=== PATIENT | male | born 1955 | race Hispanic/Latino ===

== ENCOUNTER 2021-03-05 00:55 | Emergency (ER) | payer OTHER ==
[~2021-03-05] VITALS: Ht 172.7 cm; Wt 87.1 kg
[2021-03-05 00:56] VITALS: BP 132/72
[2021-03-05] MEDS ORDERED: KETOROLAC 60 MG VIAL (30MG/ML) ONE (02:00)
[2021-03-05] MEDS ORDERED: CYCLOBENZAPRINE HCL 10 MG TABLET ONE (02:00)
[2021-03-05] MEDS ORDERED: CYCLOBENZAPRINE HCL 10 MG TABLET PO ONE (02:00)
[2021-03-05] MEDS ORDERED: KETOROLAC 60 MG VIAL (30MG/ML) IM ONE (02:00)
[2021-03-05] MEDS ORDERED: CYCL10TA16 PO (02:20)
[2021-03-05] MEDS ORDERED: IBUP-2070 PO (02:20)
== END 2021-03-05 02:45 | disposition home or self-care (01) ==
LOC: EDH 00:55
DX: M62.838 Other muscle spasm (principal); E11.9 Type 2 diabetes mellitus without complications; Z79.1 Long term (current) use of non-steroidal anti-inflammatories (NSAID)
CPT/HCPCS: 96372; 99283; J1885

== ENCOUNTER 2021-07-07 14:06 | Emergency (ER) | payer OTHER ==
[~2021-07-07] VITALS: Ht 175.3 cm; Wt 88.5 kg
[~2021-07-07 14:06] MED LIST: CYCL10TA16 PO; IBUP-2070 PO
[2021-07-07 14:25] LABS: BASOPHILS % (AUTO) 0.6 % (0.0-5.0); EOSINOPHILS % (AUTO) 1.2 % (0.0-8.0); LYMPHOCYTES % (AUTO) 35.5 % (21.0-51.0); MEAN CORPUSCULAR HEMOGLOBIN 31.7 pg (27.0-33.0); MEAN CORPUSCULAR HGB CONC 33.2 g/dL (32.0-36.0); MEAN CORPUSCULAR VOLUME 95.6 fL (79-99); MONOCYTES % (AUTO) 7.7 % (3.0-13.0); NEUTROPHILS % (AUTO) 54.7 % (40.0-77.0); PLATELET COUNT (AUTO) 142 K/uL (130-400); RED BLOOD CELL COUNT(AUTO) 4.29 MIL/uL (4.50-6.20); RED CELL DISTRIBUTION WIDTH 13.3 % (11.0-15.5); WHITE BLOOD COUNT (AUTO) 6.6 K/uL (4.8-10.8)
[2021-07-07 14:35] LABS: INR 0.99 (0.85-1.15); POTASSIUM 3.9 mmol/L (3.5-5.1); PROTHROMBIN TIME 10.8 SEC (9.6-11.6)
[2021-07-07 14:37] LABS: PARTIAL THROMBOPLASTIN TIME 27.6 SEC (26.3-35.5)
[2021-07-07 14:44] LABS: ALBUMIN 3.8 g/dL (3.5-5.0); BILIRUBIN,TOTAL 0.5 mg/dL (0.2-1.0); TOTAL PROTEIN, SERUM 7.1 g/dL (6.0-8.3)
[2021-07-07 14:45] LABS: B-TYPE NATRIURETIC PEPTIDE 159 pg/mL (0-100)
[2021-07-07] MEDS ORDERED: ASPIRIN 325MG TAB ONE (14:56)
[2021-07-07] MEDS ORDERED: ASPIRIN 325MG EC TAB PO ONE (15:00)
[2021-07-07] MEDS ORDERED: IOHEXOL-350 75 ML VIAL IV ONE (15:17)
[2021-07-07 15:27] LABS: APPEARANCE,URINE Clear (CLEAR); BILIRUBIN,URINE Negative (NEGATIVE); COLOR,URINE Yellow (YELLOW); GLUCOSE, URINE (UA) >=1000 mg/dL (NEGATIVE); KETONES,URINE Negative (NEGATIVE); LEUKOCYTE ESTERASE ,URINE Negative (NEGATIVE); NITRATE,URINE Negative (NEGATIVE); OCCULT BLOOD,URINE Negative (NEGATIVE); PROTEIN,URINE Negative (NEGATIVE)
[2021-07-07] MEDS ORDERED: 0.9%NACL 1000ML 1,000 ML IV ONE (15:30)
[2021-07-07 15:35] LABS: AMPHET/METH SCREEN,URINE NEGATIVE (NEGATIVE); BARBITURATE SCREEN, URINE NEGATIVE (NEGATIVE); BENZODIAZEPINES SCREEN,URINE NEGATIVE (NEGATIVE); CANNABINOID SCREEN,URINE NEGATIVE (NEGATIVE); COCAINE SCREEN,URINE NEGATIVE (NEGATIVE); OPIATE SCREEN,URINE NEGATIVE (NEGATIVE); PHENCYCLIDINE SCREEN,URINE NEGATIVE (NEGATIVE)
[2021-07-07 15:40] LABS: BACTERIA,URINE Rare /HPF (None Seen); MUCUS,URINE Few LPF (None Seen); RBC,URINE 0-1 /HPF (0-1); SQUAMOUS EPITHELIAL CELL,UR Few /HPF (0-2); WBC,URINE 0-1 /HPF (0-1)
[2021-07-07 15:58] VITALS: BP 132/62
== END 2021-07-07 17:11 | disposition home or self-care (01) ==
LOC: EDH 14:06
DX: R07.89 Other chest pain (principal); E11.9 Type 2 diabetes mellitus without complications; Z88.8 Allergy status to other drugs, medicaments and biological substances; Z98.890 Other specified postprocedural states
CPT/HCPCS: 36415; 71046; 71275; 80053; 80061; 80305; 81001; 82550; 83735; 83874; 83880; 84484 ×2; 85025; 85378; 85610; 85730; 93005; 96360; 99285; J7030; Q9967

== ENCOUNTER 2022-04-22 05:58 | Observation (INO) | payer OTHER ==
[2022-04-16 10:23] LABS: BASOPHILS % (AUTO) 0.5 % (0.0-5.0); EOSINOPHILS % (AUTO) 0.5 % (0.0-8.0); HEMATOCRIT 37.9 % (42-54); LYMPHOCYTES % (AUTO) 27.7 % (21.0-51.0); MEAN CORPUSCULAR HEMOGLOBIN 32.1 pg (27.0-33.0); MEAN CORPUSCULAR VOLUME 94.3 fL (79-99); MONOCYTES % (AUTO) 5.6 % (3.0-13.0); NEUTROPHILS % (AUTO) 65.4 % (40.0-77.0); PLATELET COUNT (AUTO) 143 K/uL (130-400); RED BLOOD CELL COUNT(AUTO) 4.02 MIL/uL (4.50-6.20); RED CELL DISTRIBUTION WIDTH 12.7 % (11.0-15.5)
[2022-04-16 10:32] LABS: CREATININE 0.9 mg/dL (0.5-1.5); INR 1.01 (0.85-1.15); POTASSIUM 4.3 mmol/L (3.5-5.1)
[2022-04-16 10:33] LABS: PARTIAL THROMBOPLASTIN TIME 29.9 SEC (26.3-35.5)
[2022-04-17 11:08] VITALS: BP 109/58
[2022-04-22] VITALS (25 sets, daily range): BP systolic 108–152; BP diastolic 55–73
[~2022-04-22] VITALS: Ht 172.7 cm; Wt 85.4 kg
[~2022-04-22 05:58] MED LIST changes: +ATOR20TA65 PO; -CYCL10TA16 PO; +DOCU-116 PO; -IBUP-2070 PO; +LACT10SO5 PO; +LACTATED RINGERS 1000ML 1,000 ML IV SCH; +RAMI2.5C55 PO
[2022-04-22] MEDS ORDERED: TRANEXAMIC ACID 1000MG/10ML IV SCH (06:00)
[2022-04-22] MEDS ORDERED: 0.9%NACL 1000ML 1,000 ML IV ONE (08:00)
[2022-04-22] MEDS: CEFAZOLIN SODIUM 1 GM VIAL IVPB SCH ×2 (08:25→12:32)
[2022-04-22] MEDS ORDERED: TRANEXAMIC ACID 1000MG/10ML ONE ×2 (08:46→11:55)
[2022-04-22] MEDS ORDERED: ROPIVACAINE 0.5% 5MG/ML 30ML IJ ONE (10:43)
[2022-04-22] MEDS ORDERED: BUPIVACAINE/PF 0.25% 10ML VIAL IJ ONE (10:48)
[2022-04-22] MEDS ORDERED: LIDOCAINE PF 100MG/5ML (2%) SYRINGE 5ML ONE (11:35)
[2022-04-22] MEDS ORDERED: PROPOFOL 10 MG/ML 20ML VIAL IV ONE (11:36)
[2022-04-22] MEDS ORDERED: FENTANYL CITRATE PF 50 MCG/1 ML 2ML VIAL ONE (11:37)
[2022-04-22] MEDS ORDERED: ROCURONIUM 10MG/1ML SYR 10 MG/ML ML ONE (11:37)
[2022-04-22] MEDS ORDERED: MIDAZOLAM HCL 1 MG/ML 2ML VIAL ONE (11:37)
[2022-04-22] MEDS ORDERED: KETOROLAC 30MG VIAL (30MG/ML) ONE (11:39)
[2022-04-22] MEDS ORDERED: ONDANSETRON 4MG INJ ONE (11:39)
[2022-04-22] MEDS ORDERED: PHENYLEPHRINE HCL 10 MG/ML 1ML VIAL IV ONE (13:13)
[2022-04-22] MEDS ORDERED: HYDROCODONE/ACETAMINOPHEN 10/325 MG TAB PO PRN (14:30)
[2022-04-22] MEDS ORDERED: POTASSIUM CHLORIDE 20MEQ/100ML 100 ML IV PRN (14:30)
[2022-04-22] MEDS ORDERED: KCL 20 MEQ ERTAB PO PRN (14:30)
[2022-04-22] MEDS: 0.9%NACL 1000ML 1,000 ML IV SCH (14:30)
[2022-04-22] MEDS ORDERED: HYDROCODONE/ACETAMINOPHEN 5/325 MG TAB PO PRN (14:30)
[2022-04-22] MEDS ORDERED: ONDANSETRON 4MG INJ IVP PRN (14:30)
[2022-04-22] MEDS ORDERED: LIDOCAINE HCL-MPF 1% 2ML VIAL IV PRN (14:30)
[2022-04-22] MEDS ORDERED: POTASSIUM CHLORIDE 10% ELIXIR 20 MEQ/15 ML UDCUP PO PRN (14:30)
[2022-04-22] MEDS ORDERED: MORPHINE 4 MG SYG IVP PRN (14:30)
[2022-04-22] MEDS: ACETAMINOPHEN 1,000 MG/100 ML VIAL IV SCH ×2 (14:47→20:30)
[2022-04-22] MEDS ORDERED: HYDROMORPHONE 1 MG INJ ONE (14:50)
[2022-04-22] MEDS ORDERED: CEFAZOLIN SODIUM 2 GM VIAL ONE (17:53)
[2022-04-22] MEDS: IBUPROFEN 800MG + NS 250ML IV SCH (17:55)
[2022-04-22] MEDS: TRAMADOL HCL 50 MG TABLET PO SCH (17:56)
[2022-04-22] MEDS: CEFAZOLIN SODIUM 1 GM VIAL IVP SCH (17:58)
[2022-04-22] MEDS: FAMOTIDINE 20MG TAB PO SCH (19:39)
[2022-04-22] MEDS: LACTULOSE 20 GM/30 ML UDCUP PO SCH (19:39)
[2022-04-22] MEDS: ASPIRIN 81 MG EC TAB PO SCH (19:39)
[2022-04-22] MEDS ORDERED: NON-FORMULARY MEDICATION 1 EACH (Lactulose 10 GM) PO SCH (21:00)
[2022-04-22] MEDS ORDERED: NON-FORMULARY MEDICATION 1 EACH (Ramipril 2.5 MG) PO SCH (21:00)
[2022-04-23] MEDS: 0.9%NACL 1000ML 1,000 ML IV SCH ×2 (00:14→10:30)
[2022-04-23] MEDS: IBUPROFEN 800MG + NS 250ML IV SCH ×2 (00:14→09:30)
[2022-04-23] MEDS: CEFAZOLIN SODIUM 1 GM VIAL IVP SCH (02:50)
[2022-04-23 03:51] VITALS: BP 112/57
[2022-04-23 04:38] LABS: MEAN CORPUSCULAR HGB CONC 32.9 g/dL (32.0-36.0); MEAN CORPUSCULAR VOLUME 97.1 fL (79-99); RED BLOOD CELL COUNT(AUTO) 3.5 MIL/uL (4.50-6.20); RED CELL DISTRIBUTION WIDTH 12.7 % (11.0-15.5)
[2022-04-23 04:45] LABS: CREATININE 0.9 mg/dL (0.5-1.5); POTASSIUM 3.9 mmol/L (3.5-5.1)
[2022-04-23] MEDS: TRAMADOL HCL 50 MG TABLET PO SCH ×5 (06:21→23:54)
[2022-04-23 08:00] VITALS: BP 119/51
[2022-04-23] MEDS: RAMIPRIL 2.5 MG PO SCH (09:00)
[2022-04-23] MEDS: ASPIRIN 81 MG EC TAB PO SCH ×2 (09:24→20:54)
[2022-04-23] MEDS: FAMOTIDINE 20MG TAB PO SCH ×2 (09:24→20:54)
[2022-04-23] MEDS: POLYETHYLENE GLYCOL 3350 17 GM POWD.PACK PO SCH (09:25)
[2022-04-23] MEDS: LACTULOSE 20 GM/30 ML UDCUP PO SCH ×2 (09:25→20:54)
[2022-04-23 12:00] VITALS: BP 126/54
[2022-04-23 16:00] VITALS: BP 125/59
[2022-04-23 20:00] VITALS: BP 112/57
[2022-04-23] MEDS ORDERED: ACETAMINOPHEN 325 MG TAB PO PRN (20:30)
[2022-04-24 00:17] VITALS: BP 115/51
[2022-04-24 04:04] VITALS: BP 103/52
[2022-04-24] MEDS: TRAMADOL HCL 50 MG TABLET PO SCH ×2 (05:47→12:00)
[2022-04-24] MEDS: POLYETHYLENE GLYCOL 3350 17 GM POWD.PACK PO SCH (09:00)
[2022-04-24] MEDS: RAMIPRIL 2.5 MG PO SCH (09:00)
[2022-04-24] MEDS: FAMOTIDINE 20MG TAB PO SCH (09:44)
[2022-04-24] MEDS: ASPIRIN 81 MG EC TAB PO SCH (09:44)
[2022-04-24] MEDS: LACTULOSE 20 GM/30 ML UDCUP PO SCH (09:45)
[2022-04-25] MEDS ORDERED: BISACODYL 10 MG SUPP.RECT RC PRN (14:30)
== END 2022-04-24 17:45 | disposition home or self-care (01) ==
LOC: DAH 05:58 → DAHIP 05:59 → DAH 05:59 → 4DH 17:45
PROVIDERS: ADMIT Orthopaedic Surgery; ATTEND Orthopaedic Surgery
DX: M17.11 Unilateral primary osteoarthritis, right knee (principal); Z20.822 Contact with and (suspected) exposure to COVID-19; I10 Essential (primary) hypertension; E78.5 Hyperlipidemia, unspecified; Z79.899 Other long term (current) drug therapy
CPT/HCPCS: 80048 ×2; 85025; 85610; 85730; 87426; 36415 ×2; 27447; 0055T; 96365; 96366 ×2; 96375 ×2; 82948; 97039 ×4; 85027; 97161; 97116 ×4; 97530 ×4; A6260; G0378 ×49; A4663; J7030 ×2; A4649 ×4; J3010; J0690 ×3; J1170; J3490 ×4; J2001; J2250; J2704; J2405; J1885; J2370; J1741; G0168; C1776 ×4; A6255; A6254; A5120; A4215; A4223; A4222; A4221; J2795

== ENCOUNTER 2023-02-18 19:56 | Emergency (ER) | payer OTHER ==
[~2023-02-18] VITALS: Ht 172.7 cm; Wt 87.5 kg
[~2023-02-18 19:56] MED LIST changes: -LACTATED RINGERS 1000ML 1,000 ML IV SCH
[2023-02-18 20:31] VITALS: BP 127/74; PULSE 62; RESP 20
[2023-02-18] MEDS ORDERED: MORPHINE 4 MG SYG IM ONE (22:30)
[2023-02-19] MEDS ORDERED: ACET-2079 PO (00:05)
== END 2023-02-19 00:12 | disposition home or self-care (01) ==
LOC: EDH 19:56
DX: S49.91XA Unspecified injury of right shoulder and upper arm, initial encounter (principal); M25.511 Pain in right shoulder; E11.9 Type 2 diabetes mellitus without complications; E78.00 Pure hypercholesterolemia, unspecified; W01.0XXA Fall on same level from slipping, tripping and stumbling without subsequent striking against object, initial encounter; Y93.89 Activity, other specified; Y92.89 Other specified places as the place of occurrence of the external cause; Y99.8 Other external cause status
CPT/HCPCS: 99284; 73060; 73030; 96372; J2270

== ENCOUNTER 2025-02-03 07:35 | Observation (INO) | payer OTHER ==
[~2025-02-03] VITALS: Ht 172.7 cm; Wt 88.3 kg
[~2025-02-03 07:35] MED LIST changes: +ACET-2079 PO; +LACT-441 PO; -LACT10SO5 PO; -RAMI2.5C55 PO; +RAMI2.5C57 PO
--- NOTE | 2025-02-03 07:48 | NUR ---
PT TRANSPORTED VIA WHEELCHAIR DUE TO BLE PAIN AND WEAKNESS. PT STATES HE WAS SEEN AT PCP ON THURSDAY FOR SCIATICA TO BILATERAL HIPS AND PRESCRIBED MEDICATION FOR PAIN. PT CURRENTLY ON MEDICATION AND STATES THAT ITS POSSIBLE HE IS HAVING A REACTION TO MEDS. HE STATES SINCE HE BEGAN MEDS HE HAS BEEN FEELING DIZZY, UNABLE TO STAND WITHOUT ASSISTANCE, BLE WEAKNESS, BURNING WITH URINATION,AND FEVER.
[2025-02-03 08:03] LABS: APPEARANCE,URINE CLOUDY (CLEAR); GLUCOSE, URINE (UA) NEGATIVE (NEGATIVE); LEUKOCYTE ESTERASE ,URINE 500 Leu/uL (NEGATIVE); NITRATE,URINE 1+ (NEGATIVE); OCCULT BLOOD,URINE +- (TRACE) (NEGATIVE)
--- NOTE | 2025-02-03 08:05 | EKG ---
[facility] Test Date: 2025-02-03 Test Time: 08:00:35 Pat Name: NADEEN BRAMBILA Department: ED Room: 332 Gender: M English Language Learner Tutor: [id number] : 1955 Requested By: ALEX BROOKS Order Number: [id number] Reading MD: Efra Humphreys Measurements Intervals [place] Rate: 71 P: 33 UT: 141 QRS: 0 QRSD: 93 T: 43 QT: 407 QTc: 443 Interpretive Statements Sinus rhythm Compared to ECG 07/07/2021 14:12:51 Sinus bradycardia no longer present Electronically Signed On 02-03-2025 18:30:29 CDT by Efra Humphreys Please click the below link to view image of tracing.
[2025-02-03 08:06] LABS: ADD UA MICROSCOPIC YES
[2025-02-03 08:08] LABS: SQUAMOUS EPITHELIAL CELL,UR RARE /HPF (0-2); WBC CLUMP FEW /HPF (0-1)
[2025-02-03 08:30] LABS: IMMATURE GRANULOCYTE ABSOLUTE 0.06 K/uL (0-1); NUCLEATED RED BLOOD CELLS 0.0 % (0.0-0.19); PLATELET COUNT (AUTO) 136 K/uL (130-400); RED BLOOD CELL COUNT(AUTO) 3.31 MIL/uL (4.50-6.20); RED CELL DISTRIBUTION WIDTH 13.4 % (11.0-15.5); WHITE BLOOD COUNT (AUTO) 13.3 K/uL (4.8-10.8)
[2025-02-03] MEDS: 0.9%NACL 1000ML 1,000 ML IV ONE (08:40)
[2025-02-03 08:56] LABS: ASPARTATE AMINOTRANSFERASE 19.0 U/L (10-37); CREATINE KINASE, TOTAL 63.0 U/L (21-232); CREATININE 1.4 mg/dL (0.5-1.3); GLOMERULAR FILTR. RATE CALC 54.0 mL/min (>90); GLUCOSE,RANDOM 158.0 mg/dL (70-105); SODIUM SERUM 140.0 mmol/L (136-145); TOTAL PROTEIN, SERUM 6.9 g/dL (6.0-8.3); UREA NITROGEN, BLOOD 22.0 mg/dL (7-18)
--- NOTE | 2025-02-03 10:11 | HMCIMG ---
EXAM: CR Chest, single view. CLINICAL HISTORY: Fever. COMPARISON: Prior chest radiograph dated FINDINGS: The lungs show no infiltrate or other acute findings. No pleural effusion or pneumothorax. The cardiomediastinal silhouette is within normal limits. No acute osseous abnormality. IMPRESSION: No acute cardiopulmonary pathology is evident. Compared to the prior study, there is no significant interval change. /Charlo
--- NOTE | 2025-02-03 10:19 | ERN ---
ED Note History of Present Illness Stated Complaint: RT&LT HIP PAIN,FEVER,UNABLE TO STAND Chief Complaint: Multiple Complaints Time Seen by MD: 07:42 Dictation: 69-year-old male presenting to the emergency department with generalized weakness hip pain subjective fevers and problem to low back and hip over the past few days worsened this morning. Allergies: Coded Allergies: No Known Allergies (Unverified Allergy, Unknown, 07/07/21) Home Meds Active Scripts Acetaminophen with Codeine (Acetaminophen-Cod #3 Tablet) 300 Mg-30 Mg Tablet, 1- 2 TAB PO Q4H PRN for PAIN, #10 TAB 0 Refills Prov:ELYSSA BUTLER MD 02/19/23 Reported Medications Docusate Sodium (Colace) 100 Mg Capsule, 100 MG PO HS, CAP 04/17/22 Lactulose (Lactulose) 10 Gm/15 Ml Solution, 10 GM PO BID, ML 04/17/22 Ramipril (Ramipril) 2.5 Mg Capsule, 2.5 MG PO HS, CAP 04/17/22 Atorvastatin Calcium (Atorvastatin Calcium) 20 Mg Tablet, 20 MG PO HS, TAB 04/17/22 Past Medical History Past Medical History: Diabetes-Type II, High Cholesterol, Other Additional Past Medical Hx: CHRONIC CONSTIPATION Surgical History: Other Surgical History Other: TOTAL RT KNEE REPLACEMENT Social History: Lives with family Review of System Dictation Constitutional: Per HPI Eyes: Negative for injury, pain,redness, and discharge ENT: Negative for injury,pain or swelling Cardiovascular: Negative for chest pain, palpitations, and edema Respiratory: Negative for shortness of breath, cough, and wheezing, Abdomen/GI: Negative for abdominal pain, nausea, vomiting, diarrhea, and constipation Back: Per HPI : Per HPI MS/Extremity: Negative for injury and deformity Skin: Negative for rash, and discoloration Neuro: Negative for headache, weakness, numbness, tingling, and seizure Psych: Negative for suicide ideation, homicidal ideation, and hallucinations Initial Vital Sign VS Vital Signs Date Time Temp Pulse Resp B/P (MAP) Pulse Ox O2 Delivery O2 Flow Rate FiO2 02/03/25 07:38 100.4 75 20 112/50 98 Room Air 0 02/03/25 07:43 21 Physical Exam Dictation General: awake, alert, febrile Head/Face: Normocephalic, atraumatic Eyes: PERRL, EOMI, vision at baseline ENT: oral cavity clear, TMs clear, no signs of infection Neck: Trachea midline, supple, no nuchal rigidity Cardiovascular: RRR, normal S1/S2, No MRGs, no JVD Respiratory: CTAB, no respiratory distress, No rales or wheezes Abdomen: Soft, non-tender, non-distended, normal bowel sounds, no guarding or rebound. Skin: Warm, dry, normal turgor, no rash MS/Extremity: Pulses equal, no cyanosis, neurovascular intact, FROM Neuro: COAx4, GCS 15, strength 5/5, CN 2-12 intact, normal cerebellar exam, normal gait, Psych: Normal behavior, mood, and affect normal Results (Laboratory/Radiology) Laboratory/Radiology Laboratory Tests Test 02/03/25 07:45 02/03/25 08:17 Urine Color DARK-YELLOW (YELLOW) Urine Appearance CLOUDY (CLEAR) H Urine pH 6.0 (5.0-8.0) Urine Specific [place] 1.021 (1.001-1.031) Urine Protein 10 mg/dL (NEGATIVE) H Urine Glucose (UA) NEGATIVE mg/dL (NEGATIVE) Urine Ketones NEGATIVE mg/dL (NEGATIVE) Urine Occult Blood +- (TRACE) (NEGATIVE) H Urine Nitrate 1+ (NEGATIVE) H Urine Bilirubin 1 mg/dL (NEGATIVE) H Urine Urobilinogen 4.0 mg/dL (0.2-1.0) H Urine Leukocyte Esterase 500 June/uL (NEGATIVE) H Urine RBC 6-10 /HPF (0-1) H Urine WBC TNTC /HPF (0-1) H Urine WBC Clumps (Auto) FEW /HPF (0-1) Urine Squamous Epithelial Cells RARE /HPF (0-2) Urine Bacteria Rare /HPF (None Seen) White Blood Count 13.3 K/uL (4.8-10.8) H Red Blood Count 3.31 MIL/uL (4.50-6.20) L Hemoglobin 10.6 g/dL (14.0-18.0) L Hematocrit 31.6 % (42-54) L Mean Corpuscular Volume 95.5 fL (79-99) Mean Corpuscular Hemoglobin 32.0 pg (27.0-33.0) Mean Corpuscular Hemoglobin Concent 33.5 g/dL (32.0-36.0) Red Cell Distribution Width 13.4 % (11.0-15.5) Platelet Count 136 K/uL (130-400) Mean Platelet Volume 10.8 fL (7.5-10.5) H Immature Granulocyte % (Auto) 0.5 % (0-1) Neutrophils (%) (Auto) 90.7 % (40.0-77.0) H Lymphocytes (%) (Auto) 3.8 % (21.0-51.0) L Monocytes (%) (Auto) 4.7 % (3.0-13.0) Eosinophils (%) (Auto) 0.1 % (0.0-8.0) Basophils (%) (Auto) 0.2 % (0.0-5.0) Neutrophils # (Auto) 12.1 K/uL (1.8-7.7) H Lymphocytes # (Auto) 0.5 K/uL (1.0-4.8) L Monocytes # (Auto) 0.6 K/uL (0.1-1.0) Eosinophils # (Auto) 0.01 K/uL (0.00-0.70) Basophils # (Auto) 0.03 K/uL (0.00-0.20) Absolute Immature Granulocyte (auto 0.06 K/uL (0-1) Nucleated Red Blood Cells 0.0 % (0.0-0.19) White Cell Morphology Comment See comments Sodium Level 140 mmol/L (136-145) Potassium Level 3.8 mmol/L (3.5-5.1) Chloride Level 106 mmol/L (101-111) Carbon Dioxide Level 26 mmol/L (21-32) Blood Urea Nitrogen 22 mg/dL (7-18) H Creatinine 1.4 mg/dL (0.5-1.3) H Glomerular Filtration Rate Calc 54 mL/min (>90) Random Glucose 158 mg/dL (70-105) H Lactic Acid Level 1.4 mmol/L (0.8-2.5) Total Calcium 8.3 mg/dL (8.5-10.1) L Total Bilirubin 1.4 mg/dL (0.2-1.0) H Direct Bilirubin 0.3 mg/dL (0.0-0.3) Aspartate Amino Transf (AST/SGOT) 19 U/L (10-37) Alanine Aminotransferase (ALT/SGPT) 19 U/L (12-78) Alkaline Phosphatase 72 U/L (50-136) Total Creatine Kinase 63 U/L (21-232) # Troponin I High Sensitivity 13 ng/L (4-75) Total Protein 6.9 g/dL (6.0-8.3) Albumin 3.7 g/dL (3.5-5.0) Labs Reviewed?: Yes EKG Comment: Heart rate 71 normal sinus rhythm normal intervals no STEMI ED Course ED Course Orders Procedure Category Date Status Time Urinalysis Profile LAB 02/03/25 Complete 07:43 12 Lead Ekg Tracing- EKG 02/03/25 Complete Technical 07:52 Basic Metabolic Panel LAB 02/03/25 Complete 07:52 Blood Cult LALO 02/03/25 In Process 07:52 Cbc With Differential LAB 02/03/25 Complete 07:52 Hepatic Function Panel LAB 02/03/25 Complete 07:52 Creatine Kinase, Total LAB 02/03/25 Complete 07:52 Lactic Acid LAB 02/03/25 Complete 07:52 Troponin I High LAB 02/03/25 Complete Sensitivity 07:52 Chest 1vw RAD 02/03/25 Resulted 07:52 Ceftriaxone 2gm Vial PHA 02/03/25 Complete (Rocephin 2gm Inj) 08:00 0.9%Nacl 1000ml (Ns PHA 02/03/25 Complete 1000ml) 08:00 Acetaminophen 500mg PHA 02/03/25 Complete Tab (Tylenol 500mg T 08:00 Culture Urine LALO 02/03/25 Logged 08:07 Current Medications Medications (Trade) Dose Ordered Sig/Topher Route PRN Reason Start Time Stop Time Status Last Admin Dose Admin Acetaminophen (TYLenol 500MG TAB) 1,000 mg ONCE ONCE PO 02/03/25 08:00 02/03/25 08:01 DC 02/03/25 08:40 Ceftriaxone Sodium (Rocephin 2gm Inj) 2 gm ONCE ONCE IVPB 02/03/25 08:00 02/03/25 08:01 DC 02/03/25 08:40 Sodium Chloride 1,000 ml @ 0 mls/hr ONCE ONCE IV 02/03/25 08:00 02/03/25 08:01 DC 02/03/25 08:40 Vital Signs Date Time Temp Pulse Resp B/P (MAP) Pulse Ox O2 Delivery O2 Flow Rate FiO2 02/03/25 08:43 100.4 77 20 110/65 97 Room Air* 0 21 02/03/25 08:40 100.4 02/03/25 07:43 100.4 75 20 112/50 97 Room Air* 0 21 02/03/25 07:38 100.4 75 20 112/50 98 Room Air 0 Medical Decision Making MDM MDM: Differential diagnosis: Rationale: Tests considered and ordered secondary to shared decision making include: labs, ECG and radiology Previous outside records reviewed: Old ER visits. Risk of complication and/or morbidity or mortality of patient management: None Medications-Per medication reconciliation Need for hospitalization: Patient does meet criteria for hospitalization. Need for emergency major/minor surgery: No There are no social concerns with this patient. Prescription drug management Prescriptions will include symptomatic care Patient's prior external medical records from other ER visits were reviewed by me as indicated. Prior testing and results from previous visits were reviewed. Prior tests were taken into account with medical decision making and resource utilization, independent historian/historians were used to obtain complete medical history. I independently interpreted the test that were performed, results were reviewed by me and considered findings on radiology if ordered. Medical management and examination interpretation discussions were had by me with other qualified healthcare professionals as indicated for the patient's care. 69-year-old male with UTI sepsis IV fluids and antibiotics given hemodynamically stable admitting to Medicine for further care and evaluation DX & DISP Disposition: Inpatient Departure Impression: Primary Impression: UTI (urinary tract infection) Additional Impression: Sepsis Condition: Stable Referrals: ABY ADAMES MD (PCP) ALEX BROOKS MD Feb 03, 2025 10:19
[2025-02-03 10:44] LABS: INR 1.04 (0.85-1.15)
[2025-02-03 10:50] LABS: LACTATE DEHYDROGENASE 159.0 U/L (81-234)
[2025-02-03] MEDS ORDERED: ZOSYN 3.375GM +NS 50ML IVPB SCH (11:00)
--- NOTE | 2025-02-03 11:26 | HP ---
[facility] HISTORY AND PHYSICAL Date of Service: Feb 03, 2025 Time of Service: 11:26 HISTORY OF PRESENT ILLNESS: Date of service: 02/03/2025, patient was seen in ER room nine This is a 69-year-old male with underlying history of recently diagnosed BPH, hypertension, hyperlipidemia, history of sciatica who presented to the ER for further evaluation of fever with a, poor oral intake, and lower extremity we akness. Patient states that he has been having progressive pain involving the back and bilateral lower extremities involving the thigh, and he recently saw his primary care provider about five days ago. Was diagnosed with flare-up of sciatica and has been taking methocarbamol since Thursday to assist with symptoms. Patient states that close to midnight tonight, he felt more dizziness, progressive weakness of the bilateral lower extremities where he could not get up from the bed. Denies any falls. Denies any chest pain, cough or congestion. He has been having dysuria, and increased urinary frequency. Patient reports having history of constipation and he takes p.r.n. MiraLax for management of constipation./bowel movement was yesterday. Patient denies any previous history of stroke, denies any cardiac or pulmonary comorbidities. States that he is feeling much better since coming to the ER and the weakness has mostly resolved lower extremity. On presentation to the hospital, patient was noted to be febrile with T-max of 100.4, heart rate of 75, blood pressure of 112/50. Labs [place] [address], hemoglobin of 10.6, platelet count of 802780. BMP remarkable for sodium of 140, potassium 3.8, BUN of 22, creatinine 1.4, blood glucose of 158, procalcitonin of 1.74. Urinalysis showed cloudy urine with leukocyte esterase positive, significant pyuria, rare bacteria. Patient will be admitted for further management of sepsis secondary to complicated urinary tract infection. Patient will receive sepsis bolus of fluids, IV antibiotics. Patient was also seen by Dr. Rojo with Tele neurology, patient with no significant focal deficits so no need for CT head without contrast per Dr. Rojo. Dr. Rojo was recommending a MRI of the lumbar spine for further evaluation if weakness does not improve during admission given his previous history of sciatica for one month. REVIEW OF SYSTEMS CONSTITUTIONAL: Generalized fatigue, malaise, poor oral intake NEUROLOGICAL: Reports having history of sciatica and he has been having lower back pain with paresthesias ENT: No hearing loss, otalgia, otorrhea, rhinitis, rhinorrhea, hoarseness, or sore throat. CARDIOVASCULAR: Denies any exertional angina, dyspnea on exertion, orthopnea, paroxysmal nocturnal dyspnea, palpitations, life-threatening arrhythmias, claudication. PULMONARY: Denies any shortness of breath, cough, phlegm/sputum, hemoptysis, pleuritic chest pain. SLEEP: Denies morning headaches, daytime somnolence or napping. Denies difficulty falling asleep, staying asleep, waking from sleep. Denies knowledge of snoring. GASTROINTESTINAL: Denies any type of dysphagia to either liquids or solids. Denies nausea, vomiting, pyrosis, early satiety, abdominal pain, diarrhea, constipation, or changes in stool consistency or caliber. Denies coffee-ground emesis, hematemesis, hematochezia, or melanotic stools. GENITOURINARY: Reports having urinary frequency, urgency ENDOCRINOLOGIC: Denies polyuria, polydipsia, polyphagia or heat/cold intolerances. HEMATOLOGIC: Denies thrombophilia/previous clots, or coagulopathy/bleeding disorders. ONCOLOGIC: Denies personal history of malignancy. DERMATOLOGIC: Denies rashes or pruritus. PSYCHIATRIC: Denies any suicidal or homicidal ideation. Denies hallucinations. PAST MEDICAL HISTORY: Hypertension, hyperlipidemia, recently diagnosed BPH, diagnosis sciatica about one month ago PAST SURGICAL HISTORY: History of bilateral knee arthroplasty by Dr. Lewis in 2022 PAST SOCIAL HISTORY: Patient denies any active smoking or alcohol consumption FAMILY HISTORY: Denies pertinent family history Allergies: No known drug allergies, patient denies any allergies to penicillin Home medications: Patient reports that he was recently prescribed course of methocarbamol and Flomax Coded Allergies: No Known Allergies (Unverified Allergy, Unknown, 07/07/21) PHYSICAL EXAM GENERAL APPEARANCE: The patient is awake, alert, and oriented, in no acute cardiopulmonary distress. NEUROLOGICAL: Cranial nerves II-XII grossly intact. Motor is 5/5 in bilateral upper and lower extremities proximal to distal. No sensory deficits. HEENT: Face is symmetric. Pupils are equal and reactive. Extraocular movements are intact. NECK: Supple. No JVD. No thyromegaly. No submental, submandibular, pre- /postauricular, occipital or supraclavicular lymphadenopathy. CHEST: Normal chest expansion. No Telemetry. LUNGS: Absence of any rales, rhonchi or any wheezing. CARDIOVASCULAR: Regular. S1 and S2 normal. No appreciable rubs, murmurs or gallops. ABDOMEN: Soft, nontender, and nondistended. There is no rebound, voluntary guarding, or rigidity. : Deferred. No Reed. EXTREMITIES: Non-edematous and not cyanotic. No clubbing. Good capillary refill. SKIN: No skin breakdown. Vital Sign (Last 24 Hours) 02/03/25 08:43 Temp 100.4 Pulse 77 Resp 20 B/P (MAP) 110/65 Pulse Ox 97 O2 Delivery Room Air* O2 Flow Rate 0 FiO2 21 LABS: Laboratory: Test 02/03/25 08:17 02/03/25 07:45 Range/Units White Blood Count 13.3 H 4.8-10.8 K/uL Red Blood Count 3.31 L 4.50-6.20 MIL/uL Hemoglobin 10.6 L 14.0-18.0 g/dL Hematocrit 31.6 L 42-54 % Mean Corpuscular Volume 95.5 79-99 fL Mean Corpuscular Hemoglobin 32.0 27.0-33.0 pg Mean Corpuscular Hemoglobin Concent 33.5 32.0-36.0 g/dL Red Cell Distribution Width 13.4 11.0-15.5 % Platelet Count 136 130-400 K/uL Mean Platelet Volume 10.8 H 7.5-10.5 fL Immature Granulocyte % (Auto) 0.5 0-1 % Neutrophils (%) (Auto) 90.7 H 40.0-77.0 % Lymphocytes (%) (Auto) 3.8 L 21.0-51.0 % Monocytes (%) (Auto) 4.7 3.0-13.0 % Eosinophils (%) (Auto) 0.1 0.0-8.0 % Basophils (%) (Auto) 0.2 0.0-5.0 % Neutrophils # (Auto) 12.1 H 1.8-7.7 K/uL Lymphocytes # (Auto) 0.5 L 1.0-4.8 K/uL Monocytes # (Auto) 0.6 0.1-1.0 K/uL Eosinophils # (Auto) 0.01 0.00-0.70 K/uL Basophils # (Auto) 0.03 0.00-0.20 K/uL Absolute Immature Granulocyte (auto 0.06 0-1 K/uL Nucleated Red Blood Cells 0.0 0.0-0.19 % White Cell Morphology Comment See comments Erythrocyte Sedimentation Rate 9 0-20 MM/HR Prothrombin Time 11.0 9.6-11.6 SEC Prothromb Time International Ratio 1.04 0.85-1.15 Activated Partial Thromboplast Time 26.7 26.3-35.5 SEC Sodium Level 140 136-145 mmol/L Potassium Level 3.8 3.5-5.1 mmol/L Chloride Level 106 101-111 mmol/L Carbon Dioxide Level 26 21-32 mmol/L Blood Urea Nitrogen 22 H 7-18 mg/dL Creatinine 1.4 H 0.5-1.3 mg/dL Glomerular Filtration Rate Calc 54 >90 mL/min Random Glucose 158 H 70-105 mg/dL Lactic Acid Level 1.4 0.8-2.5 mmol/L Total Calcium 8.3 L 8.5-10.1 mg/dL Total Bilirubin 1.4 H 0.2-1.0 mg/dL Direct Bilirubin 0.3 0.0-0.3 mg/dL Aspartate Amino Transf (AST/SGOT) 19 10-37 U/L Alanine Aminotransferase (ALT/SGPT) 19 12-78 U/L Alkaline Phosphatase 72 50-136 U/L Lactate Dehydrogenase 159 81-234 U/L Total Creatine Kinase 63 # 21-232 U/L Troponin I High Sensitivity 13 4-75 ng/L C-Reactive Protein, Quantitative 12.40 H 0.5-3.0 mg/L Total Protein 6.9 6.0-8.3 g/dL Albumin 3.7 3.5-5.0 g/dL Procalcitonin 1.74 H 0.05-0.5 ng/mL Urine Color DARK-YELLOW YELLOW Urine Appearance CLOUDY H CLEAR Urine pH 6.0 5.0-8.0 Urine Specific [place] 1.021 1.001-1.031 Urine Protein 10 H NEGATIVE mg/dL Urine Glucose (UA) NEGATIVE NEGATIVE mg/dL Urine Ketones NEGATIVE NEGATIVE mg/dL Urine Occult Blood +- (TRACE) H NEGATIVE Urine Nitrate 1+ H NEGATIVE Urine Bilirubin 1 H NEGATIVE mg/dL Urine Urobilinogen 4.0 H 0.2-1.0 mg/dL Urine Leukocyte Esterase 500 H NEGATIVE June/uL Urine RBC 6-10 H 0-1 /HPF Urine WBC TNTC H 0-1 /HPF Urine WBC Clumps (Auto) FEW 0-1 /HPF Urine Squamous Epithelial Cells RARE 0-2 /HPF Urine Bacteria Rare None Seen /HPF Current Medications Medications (Trade) Dose Ordered Sig/Topher Route PRN Reason Start Time Stop Time Status Last Admin Dose Admin Acetaminophen (TYLenol 325MG TAB) 650 mg Q6H PRN PO MILD PAIN (1-3) 02/03/25 10:30 03/05/25 10:29 Ondansetron HCl (zoFRAN 4MG INJ) 4 mg Q6H PRN IVP NAUSEA/VOMITING 02/03/25 10:30 03/05/25 10:29 Pantoprazole Sodium (PROTonix 40MG INJ) 40 mg Q24H IVP 02/03/25 11:00 03/05/25 10:59 Piperacillin Sod/ Tazobactam Sod (Zosyn 3.375gm+NS 50ml) 3.375 gm Q8H IVPB 02/03/25 11:00 02/03/25 10:34 DC Piperacillin Sod/ Tazobactam Sod (Zosyn 3.375gm+NS 50ml) 3.375 gm Q8H IVPB 02/03/25 13:00 02/13/25 12:59 Sodium Chloride 1,000 ml @ 75 mls/hr [id number] IV 02/03/25 12:00 03/05/25 11:59 Vitamin B Complex/ Vit C/Folic Acid (Nephrovite Tablet) 1 cap DAILY PO 02/04/25 09:00 03/06/25 08:59 DIAGNOSTICS / RADIOLOGY: SERVICE [id number] REASON: fever ORDERING PHYSICIAN: ALEX BROOKS MD PROCEDURE: [id number] - CHEST 1VW EXAM: CR Chest, single view. CLINICAL HISTORY: Fever. COMPARISON: Prior chest radiograph dated FINDINGS: The lungs show no infiltrate or other acute findings. No pleural effusion or pneumothorax. The cardiomediastinal silhouette is within normal limits. No acute osseous abnormality. IMPRESSION: No acute cardiopulmonary pathology is evident. Compared to the prior study, there is no significant interval change. /[employer] DICTATED BY: CHRISTIAN KAPLAN Jr., MD DATE: 02/03/25 1110 ELECTRONICALLY SIGNED BY: ADRIANE KAPLAN ASSESSMENT: Complicated urinary tract infection with sepsis, POA Leukocytosis, POA Anemia, POA Acute kidney injury, POA Recently diagnosed BPH, POA Exacerbation of sciatica, POA Hyperlipidemia, POA PLAN: Patient will be admitted to medical-surgical floor under telemetry monitoring Patient will receive sepsis bolus of fluids, we will start broad-spectrum antibiotics with IV Zosyn We will follow up results of blood cultures, urine cultures, we will deescalate antibiotics based on culture report in the next 48-72 hours We will obtain a CT abdomen pelvis without contrast for further evaluation of UTI Consultation with Infectious Disease will be requested We will keep patient on GI prophylaxis Protonix Appreciate recommendations by Dr. Rojo with tele neurology, we will obtain a MRI of the lumbar spine due to history of sciatica, patient is feeling better now after receiving fluid and IV antibiotics, no significant focal deficits of the lower extremity noted we will have PT evaluate patient, we will see how patient progresses in the next 24-48 hours Home medications will be reconciled and updated once available We will avoid any methocarbamol use We will assess for any urinary retention, we will start patient on p.r.n. MiraLax for management of constipation Renal function will be monitored closely, we will avoid any NSAIDs, IV contrast, we will follow up findings of CT abdomen pelvis as well, if renal function worsens tomorrow, we will consider consultation with Nephrology Anticipate hospitalization for at least 48-72 hours Date of service: 02/03/2025 Plan of care was discussed with patient at bedside, Juan Pablo Chen MD Advanced Care Planning: Which of the following were discussed: Hospice care: Yes __ No _X_ Therapeutic options: Yes _X_ No __ Advance directives: Yes _X_ No __ Other discussions: Discussed with who?: Patient Voluntary nature of this service was explained to the patient? Yes _x_ No __ Amount of time spent: 20 minutes JUAN PABLO CHEN MD Feb 03, 2025 11:26
--- NOTE | 2025-02-03 11:36 | CONS ---
CONSULT NOTE: [facility] Note # Demographics Consult Type: General Neurology Patient Location: Emergency Room First Name: NADEEN Last Name: KOSTA Date of : 1955 Age: 69 Gender: Male Facility: [facility] Time of Initial Page (Central Time): 02/03/2025 10:35 First Contact with Site (Central Time): 02/03/2025 10:35 # HPI Chief Complaint: - weakness (focal) History: 69 y/o M with BPH and sciatica who on Thursday started methocarbamol. Now feeling fatigue, generalized weakness. Does have a fever and UTI. With fluids and antibiotics his lower extremity weakness is improving. Patient reports pain is in both legs and his hamstrings "feel hot." Right side worse than left. Does change with position. No tenderness in his back. Initial steps with walking are painful but the more he walks the better it gets. No arm symptoms. Did notice d ysuria a couple days ago. Does feel like there is weakness with the hamstrings. # Scores Time of exam and NIHSS (Central Time): 02/03/2025 10:45 Level of Consciousness 1a: [0] = Alert; keenly responsive LOC Questions 1b: [0] = Answers both questions correctly LOC Commands 1c: [0] = Performs both tasks correctly Best Gaze 2: [0] = Normal Visual 3: [0] = No visual loss Facial Palsy 4: [0] = Normal symmetrical movements Motor Arm Left 5a: [0] = No drift Motor Arm Right 5b: [0] = No drift Motor Leg Left 6a: [0] = No drift Motor Leg Right 6b: [0] = No drift Limb Ataxia 7: [0] = Absent Sensory 8: [0] = Normal Best Language 9: [0] = No aphasia Dysarthria 10: [0] = Normal Extinction and Inattention 11: [0] = No abnormality NIHSS Total: 0 # Assessment Impression: - Weakness Favor sciatica/lumbar radiculopathy # Plan Thrombolytic/Intervention: NOT IV Thrombolysis or IA Intervention candidate Thrombolytic/Intraarterial Exclusion: - IV thrombolytic and IA intervention considered but not recommended as this patient's symptoms are not clinically consistent with an assumed diagnosis of stroke Other: - If patient has any neurological deterioration please call me back immediately - I have discussed my recommendations with the referring provider Additional Recommendations: Consider MRI L-spine for further evaluation. Timing to be determined by functional capacity--if functionally limiting then would obtain prior to discharge. If not functionally limiting can obtain as outpatient. # Logistics Attestation of consult completion: The patient is located at: [facility]. Facility staff participated in the visit. I performed this telemedicine visit from my offsite office utilizing interactive 2 way audio and visual telecommunication technology at the request of the onsite emergency room provider. Total time spent in telemedicine encounter: I spent 15 minutes reviewing clinica l data and/or imaging, obtaining history, examining the patient, communicating with the onsite care team, and in preparation of this report. # Demographics First Name: NADEEN Last Name: KOSTA Facility: [facility] MISTI MALDONADO MD Feb 03, 2025 11:35
[2025-02-03] MEDS: [UNRECOGNIZED DRUG - OTHER] IV ONE (11:44)
[2025-02-03] MEDS: 0.9%NACL 1000ML 1,000 ML IV SCH (12:08)
--- NOTE | 2025-02-03 12:39 | NUR ---
REPORT GIVEN TO CASEY AT THIS TIME.
--- NOTE | 2025-02-03 13:00 | NUR ---
ARRIVAL TO UNIT PT ARRIVED VIA STRETCHER. A&OX4. NON LABORED BREATHING. PT DENIES PAIN AT THIS TIME. NOTED 18 GAUGE TO LEFT AC.
[2025-02-03 13:13] VITALS: BP 101/51; PULSE 55; RESP 16; TEMP 97.9
[2025-02-03] MEDS: ZOSYN 3.375GM +NS 50ML IVPB SCH (13:22)
--- NOTE | 2025-02-03 15:26 | HMCIMG ---
EXAM: CT Abdomen and Pelvis Without IV Contrast CLINICAL HISTORY: Complicated urinary tract infection. TECHNIQUE: Axial computed tomography images of the abdomen and pelvis were obtained without intravenous contrast. CONTRAST: No IV contrast administered. COMPARISON: None provided. FINDINGS: LUNG BASES: The lung bases appear clear. No pleural effusions are seen. LIVER: Unremarkable in size and attenuation. No focal hepatic lesions identified. GALLBLADDER AND BILE DUCTS: Gallbladder appears within normal limits. No radioopaque gallstones or wall thickening. No intrahepatic or extrahepatic biliary dilatation. PANCREAS: Normal in size and contour. No peripancreatic stranding or focal lesion. SPLEEN: Unremarkable in size and density. ADRENAL GLANDS: Normal bilaterally. KIDNEYS, URETERS, AND BLADDER: Perinephric fat stranding is noted on both sides, suggestive of inflammatory or infectious changes. No hydronephrosis or urinary calculi are identified. The urinary bladder shows mild circumferential wall thickening, measuring approximately 0.6 cm, consistent with mild cystitis. No perivesical collection or intraluminal calculus seen. STOMACH AND BOWEL: Unremarkable appearance of the stomach and bowel. No evidence of obstruction, enteritis, or colitis. APPENDIX: Visualized appendix appears normal with no evidence of appendicitis. PERITONEUM: No free fluid or free intraperitoneal air detected. LYMPH NODES: No significant lymphadenopathy is evident. REPRODUCTIVE: Unremarkable as visualized. VASCULATURE: No evidence of abdominal aortic aneurysm or vascular calcification. BONES: Grade I anterior listhesis of L4 over L5 is noted. No acute fracture or aggressive osseous lesion identified. IMPRESSION: 1. Bilateral perinephric fat stranding, nonspecific in nature but pyelonephritis is in the differential. Follow up with CT with IV contrast if clinicall indicated. 2. Mild bladder wall thickening (0.6 cm), consistent with cystitis. 3. Grade I anterior listhesis of L4 over L5. /Cobb
[2025-02-03 15:39] VITALS: BP 114/53; PULSE 60; RESP 14; TEMP 98
--- NOTE | 2025-02-03 16:54 | NUR ---
MRI PT STATES HE IS CLAUSTROPHOBIC AND IS REQUESTING A SEDATIVE. DR. KAL MILLS MADE AWARE. DR. MILLS STATES HE WILL ORDER DIAZEPAM IV DOSE FOR WHEN PT UNDERGOES MRI.
[2025-02-03] MEDS ORDERED: TAMS-55 PO (19:18)
[2025-02-03 19:45] VITALS: O2SAT 98
[2025-02-03 20:00] VITALS: BP 95/40; PULSE 56; RESP 20; TEMP 99.8
[2025-02-04] VITALS (11 sets, daily range): BP systolic 94–131; BP diastolic 44–63; PULSE 50–80; RESP 16–20; TEMP 97.9–101; O2SAT 97–99
[2025-02-04 05:14] LABS: IMMATURE GRANULOCYTE ABSOLUTE 0.07 K/uL (0-1); NUCLEATED RED BLOOD CELLS 0.0 % (0.0-0.19); PLATELET COUNT (AUTO) 111 K/uL (130-400); RED BLOOD CELL COUNT(AUTO) 2.72 MIL/uL (4.50-6.20); RED CELL DISTRIBUTION WIDTH 13.9 % (11.0-15.5); WHITE BLOOD COUNT (AUTO) 12.1 K/uL (4.8-10.8)
[2025-02-04 05:32] LABS: % IRON SATURATION 8.4 % (30-44); IRON, SERUM 16.0 mcg/dL (65-175)
[2025-02-04 05:58] LABS: CREATININE 1.2 mg/dL (0.5-1.3); GLOMERULAR FILTR. RATE CALC 65.0 mL/min (>90); GLUCOSE,RANDOM 122.0 mg/dL (70-105); SODIUM SERUM 142.0 mmol/L (136-145); UREA NITROGEN, BLOOD 19.0 mg/dL (7-18)
--- NOTE | 2025-02-04 07:43 | NUR ---
PATIENT UPDATE PT SLEPT WELL OVERNIGHT, NO COMPLAINTS OF DYSURIA, STATED THAT HE JUST TAKES TIME TO VOID AND HE WAS STARTED WITH FLOMAX BY HIS UROLOGIST SOMETIME BACK. Shaista COHEN SUPERVISOR GLUING CALLED FOR RESUMPTION OF THE HOME MED. CONTINUES ON TELEMETRY MONITORING, NOTED PT RUNNING IN BET MID 40'S TO 50'S, SINUS BRADYCARDIA WITH THE BP RUNNING MOSTLY IN THE 94/50 TO 96/46 MMHG. PT NOT ON ANY BETA JUSTINE, NO COMPLAINTS OF ANY LIGHTHEADEDNESS OR DIZZY SPELLS WHEN GETTING UP. PROBLEM IS MOSTLY WHEN HE STARTS GETTING UP AND TAKING STEPS, FEELS BOTH LEGS ABOUT TO GET WEAK AND UNSTEADY. REINFORCED SAFETY PRECAUTIONS.
[2025-02-04] MEDS: Vitamin B Complex/Vit C/Folic Acid PO SCH (08:04)
--- NOTE | 2025-02-04 10:21 | PN ---
[facility] PROGRESS NOTE Date of Service: Feb 04, 2025 Time of Service: 10:21 SUBJECTIVE: [ Patient is 69-year-old male seen on 02/04/2025. Patient was having some anxiety and needed small dose of Valium p.o. in order to undergo MRI of the L- spine due to claustrophobia. Patient is being seen post MRI. He stated the test went uneventfully. He states that he was having burning on urination and getting up as many as 40 times to urinate prior to coming into the hospital. He does have CT evidence of pyelonephritis and he was also having sciatic type right sided low back pain. This was the reason the MRI was ordered. Patient denies any chest pain or shortness for breath no nausea or vomiting or diarrhea. Ambulating morning states he feels much better the weakness that he had prior to admission is also improving. He was able to ambulate some 400 ft with minimal assistance.] REVIEW OF SYSTEMS CONSTITUTIONAL: Generalized fatigue, malaise, poor oral intake NEUROLOGICAL: Reports having history of sciatica and he has been having lower back pain with paresthesias ENT: No hearing loss, otalgia, otorrhea, rhinitis, rhinorrhea, hoarseness, or sore throat. CARDIOVASCULAR: Denies any exertional angina, dyspnea on exertion, orthopnea, paroxysmal nocturnal dyspnea, palpitations, life-threatening arrhythmias, claudication. PULMONARY: Denies any shortness of breath, cough, phlegm/sputum, hemoptysis, pleuritic chest pain. SLEEP: Denies morning headaches, daytime somnolence or napping. Denies difficulty falling asleep, staying asleep, waking from sleep. Denies knowledge of snoring. GASTROINTESTINAL: Denies any type of dysphagia to either liquids or solids. Denies nausea, vomiting, pyrosis, early satiety, abdominal pain, diarrhea, constipation, or changes in stool consistency or caliber. Denies coffee-ground emesis, hematemesis, hematochezia, or melanotic stools. GENITOURINARY: Reports having urinary frequency, urgency ENDOCRINOLOGIC: Denies polyuria, polydipsia, polyphagia or heat/cold intolerances. HEMATOLOGIC: Denies thrombophilia/previous clots, or coagulopathy/bleeding disorders. ONCOLOGIC: Denies personal history of malignancy. DERMATOLOGIC: Denies rashes or pruritus. PSYCHIATRIC: Denies any suicidal or homicidal ideation. Denies hallucinations. PHYSICAL EXAM GENERAL APPEARANCE: The patient is awake, alert, and oriented, in no acute cardiopulmonary distress. NEUROLOGICAL: Cranial nerves II-XII grossly intact. Motor is 5/5 in bilateral upper and lower extremities proximal to distal. No sensory deficits. HEENT: Face is symmetric. Pupils are equal and reactive. Extraocular movements are intact. NECK: Supple. No JVD. No thyromegaly. No submental, submandibular, pre-/postau ricular, occipital or supraclavicular lymphadenopathy. CHEST: Normal chest expansion. No Telemetry. LUNGS: Absence of any rales, rhonchi or any wheezing. CARDIOVASCULAR: Regular. S1 and S2 normal. No appreciable rubs, murmurs or gallops. ABDOMEN: Soft, nontender, and nondistended. There is no rebound, voluntary guarding, or rigidity. Mild tenderness to percussion of the right flank : Deferred. No Reed. EXTREMITIES: Non-edematous and not cyanotic. No clubbing. Good capillary refill. SKIN: No skin breakdown. Vital Signs (last 8hr) Date Time Temp Pulse Resp B/P (MAP) Pulse Ox O2 Delivery O2 Flow Rate FiO2 02/04/25 07:55 98.2 51 18 106/53 97 Room Air 02/04/25 04:00 98.4 50 20 94/50 96 Room Air LABS: Laboratory: Test 02/04/25 09:32 02/04/25 04:32 02/03/25 08:17 02/03/25 07:45 Range/Units Hemoglobin 9.1 L 14.0-18.0 g/dL Hematocrit 27.2 L 42-54 % White Blood Count 12.1 H 4.8-10.8 K/uL Red Blood Count 2.72 L 4.50-6.20 MIL/uL Mean Corpuscular Volume 95.6 79-99 fL Mean Corpuscular Hemoglobin 32.4 27.0-33.0 pg Mean Corpuscular Hemoglobin Concent 33.8 32.0-36.0 g/dL Red Cell Distribution Width 13.9 11.0-15.5 % Platelet Count 111 L 130-400 K/uL Mean Platelet Volume 11.3 H 7.5-10.5 fL Immature Granulocyte % (Auto) 0.6 0-1 % Neutrophils (%) (Auto) 79.9 H 40.0-77.0 % Lymphocytes (%) (Auto) 13.6 L 21.0-51.0 % Monocytes (%) (Auto) 5.5 3.0-13.0 % Eosinophils (%) (Auto) 0.2 0.0-8.0 % Basophils (%) (Auto) 0.2 0.0-5.0 % Neutrophils # (Auto) 9.7 H 1.8-7.7 K/uL Lymphocytes # (Auto) 1.7 1.0-4.8 K/uL Monocytes # (Auto) 0.7 0.1-1.0 K/uL Eosinophils # (Auto) 0.03 0.00-0.70 K/uL Basophils # (Auto) 0.03 0.00-0.20 K/uL Absolute Immature Granulocyte (auto 0.07 0-1 K/uL Nucleated Red Blood Cells 0.0 0.0-0.19 % Sodium Level 142 136-145 mmol/L Potassium Level 4.1 3.5-5.1 mmol/L Chloride Level 110 101-111 mmol/L Carbon Dioxide Level 27 21-32 mmol/L Blood Urea Nitrogen 19 H 7-18 mg/dL Creatinine 1.2 0.5-1.3 mg/dL Glomerular Filtration Rate Calc 65 >90 mL/min Random Glucose 122 H 70-105 mg/dL Total Calcium 7.7 L 8.5-10.1 mg/dL Iron Level 16 L 65-175 mcg/dL Total Iron Binding Capacity 189 L 250-450 mcg/dL Percent Iron Saturation 8.4 L 30-44 % Vitamin B12 Level 270 193-986 pg/mL Folic Acid (LAB) 13.90 2-20 ng/mL White Cell Morphology Comment See comments Erythrocyte Sedimentation Rate 9 0-20 MM/HR Prothrombin Time 11.0 9.6-11.6 SEC Prothromb Time International Ratio 1.04 0.85-1.15 Activated Partial Thromboplast Time 26.7 26.3-35.5 SEC Lactic Acid Level 1.4 0.8-2.5 mmol/L Total Bilirubin 1.4 H 0.2-1.0 mg/dL Direct Bilirubin 0.3 0.0-0.3 mg/dL Aspartate Amino Transf (AST/SGOT) 19 10-37 U/L Alanine Aminotransferase (ALT/SGPT) 19 12-78 U/L Alkaline Phosphatase 72 50-136 U/L Lactate Dehydrogenase 159 81-234 U/L Total Creatine Kinase 63 # 21-232 U/L Troponin I High Sensitivity 13 4-75 ng/L C-Reactive Protein, Quantitative 12.40 H 0.5-3.0 mg/L Total Protein 6.9 6.0-8.3 g/dL Albumin 3.7 3.5-5.0 g/dL Procalcitonin 1.74 H 0.05-0.5 ng/mL Urine Color DARK-YELLOW YELLOW Urine Appearance CLOUDY H CLEAR Urine pH 6.0 5.0-8.0 Urine Specific [place] 1.021 1.001-1.031 Urine Protein 10 H NEGATIVE mg/dL Urine Glucose (UA) NEGATIVE NEGATIVE mg/dL Urine Ketones NEGATIVE NEGATIVE mg/dL Urine Occult Blood +- (TRACE) H NEGATIVE Urine Nitrate 1+ H NEGATIVE Urine Bilirubin 1 H NEGATIVE mg/dL Urine Urobilinogen 4.0 H 0.2-1.0 mg/dL Urine Leukocyte Esterase 500 H NEGATIVE June/uL Urine RBC 6-10 H 0-1 /HPF Urine WBC TNTC H 0-1 /HPF Urine WBC Clumps (Auto) FEW 0-1 /HPF Urine Squamous Epithelial Cells RARE 0-2 /HPF Urine Bacteria Rare None Seen /HPF Current Medications Medications (Trade) Dose Ordered Sig/Topher Route PRN Reason Start Time Stop Time Status Last Admin Dose Admin Acetaminophen (TYLenol 325MG TAB) 650 mg Q6H PRN PO MILD PAIN (1-3) 02/03/25 10:30 03/05/25 10:29 Atorvastatin Calcium (LIPItor 20MG) 20 mg HS PO 02/03/25 21:00 03/05/25 20:59 02/03/25 21:21 20 MG Diazepam (VALium 5 MG/ML 2 ML SYG) 2.5 mg ONCE IVP 02/03/25 17:30 02/03/25 19:05 DC Diazepam (VALium 5 MG/ML 2 ML SYG) 2.5 mg ONCE PRN IVP anxiety 02/03/25 19:30 02/03/25 21:30 DC Hydralazine HCl (APRESOLine 20MG INJ) 5 mg Q6H PRN IV ADMINISTER FOR SBP > 160 02/03/25 11:30 02/03/25 19:35 DC Hydralazine HCl (APRESOLine 20MG INJ) 5 mg Q6H PRN IV ADMINISTER FOR SBP > 160 02/03/25 19:30 03/05/25 19:29 Ondansetron HCl (zoFRAN 4MG INJ) 4 mg Q6H PRN IVP NAUSEA/VOMITING 02/03/25 10:30 03/05/25 10:29 Pantoprazole Sodium (PROTonix 40MG INJ) 40 mg Q24H IVP 02/03/25 11:00 03/05/25 10:59 02/04/25 10:04 40 MG Piperacillin Sod/ Tazobactam Sod (Zosyn 3.375gm+NS 50ml) 3.375 gm Q8H IVPB 02/03/25 11:00 02/03/25 10:34 DC Piperacillin Sod/ Tazobactam Sod (Zosyn 3.375gm+NS 50ml) 3.375 gm Q8H IVPB 02/03/25 13:00 02/13/25 12:59 02/04/25 04:58 3.375 GM Polyethylene Glycol (MIRalax 3350 17 GM POWD.PACK) 17 gm DAILY PRN PO constipation 02/03/25 11:30 03/05/25 11:29 Sodium Chloride 1,000 ml @ 75 mls/hr [id number] IV 02/03/25 12:00 03/05/25 11:59 02/04/25 04:58 75 MLS/HR Tamsulosin HCl (FloMAX) 0.4 mg DAILY PO 02/04/25 09:00 03/06/25 08:59 02/04/25 08:04 0.4 MG Vitamin B Complex/ Vit C/Folic Acid (Nephrovite Tablet) 1 cap DAILY PO 02/04/25 09:00 03/06/25 08:59 02/04/25 08:04 1 CAP DIAGNOSTICS / RADIOLOGY: [ ] ASSESSMENT: Complicated urinary tract infection with sepsis, POA Leukocytosis, POA Anemia, POA Acute kidney injury, POA Recently diagnosed BPH, POA Exacerbation of sciatica, POA Hyperlipidemia, POA early pyelonephritis, POA PLAN: Patient will be admitted to medical-surgical floor under telemetry monitoring continue broad spectrum IV abx We will obtain a CT abdomen pelvis without contrast for further evaluation of UTI Consultation with Infectious Disease will be requested We will keep patient on GI prophylaxis Protonix await MRI report Home medications will be reconciled and updated once available We will avoid any methocarbamol use We will assess for any urinary retention, we will start patient on p.r.n. MiraLax for management of constipation renal function improving. continue to monitor Date of service:02/04/25 KARISHMA MA MD Feb 04, 2025 10:21
--- NOTE | 2025-02-04 14:00 | NUR ---
MET W/ PATIENT FOR DC PLANNING. LIVES W SPOUSE, IS INDEPENDENT, DRIVES, NO DME OR SERVICES; PLAN OF CARE DISCUSSED; IF NEEDS ABX; CAN GO TO AN [facility]. HOME SAFE AND ACCESSIBLE, DCP HOME, SPOUSE TO PROVIDE TRANSPORT. URINE CULTURES PENDING- CM AVAIABLE FOR DCP IF NEED ARISES Addendum: 02/04/25 at 2003 by DEMOND GONZALES RN CM Amended: Links added.
--- NOTE | 2025-02-04 17:53 | CONS ---
INFECTIOUS DISEASE CONSULTATION DATE OF SERVICE: 02/03/2025 REQUESTING PHYSICIAN: Dr. Chen. REASON FOR CONSULTATION: Sepsis, UTI on antibiotic. HISTORY OF PRESENT ILLNESS: This is a 69-year-old male with history of BPH, hypertension, dyslipidemia, sciatica, who presented to the hospital with fever, chills, and urinary symptoms. The patient was found with elevated procalcitonin, WBC and fever. Temperature was 100.4. Urinalysis was positive. The patient has been started on broad spectrum antibiotics. No cough or shortness of breath. No palpitations or orthopnea. Denies sick contact or recent travel. PAST MEDICAL HISTORY: * Hypertension. * BPH. * UTI. * Dyslipidemia. * Obesity. * . PAST SURGICAL HISTORY: Bilateral total knee arthoplasty. ALLERGIES: No known drug allergies. CURRENT MEDICATIONS: Reviewed. SOCIAL HISTORY: Denies alcohol use or tobacco use. FAMILY HISTORY: Noncontributory. REVIEW OF SYSTEMS: CONSTITUTIONAL: No fever or chills. No weight loss or night sweats. EYES: No photophobia or diplopia. HENT: No sore throat. No rhinorrhea or earache. NECK: No neck pain or neck swelling. RESPIRATORY: No cough. No hemoptysis or pleuritic pain. CARDIOVASCULAR: No chest pain. No palpitations or orthopnea. GASTROINTESTINAL: Denies nausea, vomiting, abdominal pain. GENITOURINARY: Positive for dysuria. No hematuria. Positive for ____. CENTRAL NERVOUS SYSTEM: No headache, dyspnea, or slurred speech. PSYCHIATRY: No depression, no suicidal ideation. MUSCULOSKELETAL: No joint pain or joint swelling. PHYSICAL EXAMINATION: GENERAL: Elderly male, alert, awake. VITAL SIGNS: Pulse 55, respiratory rate 16, BP 101/51. EYES: No icterus. Pupils equal and reactive. HENT: No oral thrush seen. Moist oral mucosa. NECK: Supple. No JVD or thyromegaly. LUNGS: Good air entry. No rales, no rhonchi. CARDIOVASCULAR: S1 and S2. Regular. No murmur heard. ABDOMEN: Full, soft, nontender. Bowel sound is present. CENTRAL NERVOUS SYSTEM: Awake, alert, oriented x 3. No focal deficits. SKIN: No rashes, no itchiness. LYMPHATIC: No peripheral lymphadenopathy. BACK: No deformity or pressure ulcer. MUSCULOSKELETAL: No joint swelling, erythema or tenderness. LABORATORY DATA: Procalcitonin 1.74, sodium 140, potassium 3.8, BUN 22, creatinine 1.4. WBC 13.3, hemoglobin 10.6, platelets 136. Urine culture pending. Urinalysis with wbc's too numerous to count. ASSESSMENT: A 69-year-old male presenting with fever and urinary symptoms. * Gram negative sepsis. * UTI. * History of BPH. * Obesity. * Acute renal failure. PLAN: * Continue Zosyn. * Follow up cultures. * Continue pain management. * Continue antihypertensive. * Continue Flomax. * Continue with DVT prophylaxis. * Monitor electrolytes. * Antibiotic adjusted ____ cultures are updated further or finalized. Thank you for allowing me to participate in the care of this patient. TID: [id number] RECEIPT: [id number]
[2025-02-05] VITALS (7 sets, daily range): BP systolic 108–152; BP diastolic 51–75; PULSE 51–64; RESP 15–20; TEMP 97.4–99.3; O2SAT 100
[2025-02-05 04:55] LABS: IMMATURE GRANULOCYTE ABSOLUTE 0.03 K/uL (0-1); NUCLEATED RED BLOOD CELLS 0.0 % (0.0-0.19); PLATELET COUNT (AUTO) 96 K/uL (130-400); RED BLOOD CELL COUNT(AUTO) 2.75 MIL/uL (4.50-6.20); RED CELL DISTRIBUTION WIDTH 13.7 % (11.0-15.5); WHITE BLOOD COUNT (AUTO) 7.8 K/uL (4.8-10.8)
[2025-02-05 05:41] LABS: CREATININE 1.3 mg/dL (0.5-1.3); GLOMERULAR FILTR. RATE CALC 59.0 mL/min (>90); GLUCOSE,RANDOM 115.0 mg/dL (70-105); SODIUM SERUM 144.0 mmol/L (136-145); UREA NITROGEN, BLOOD 16.0 mg/dL (7-18)
--- NOTE | 2025-02-05 07:08 | PN ---
INFECTIOUS DISEASE FOLLOWUP NOTE DATE OF SERVICE: 02/04/2025 SUBJECTIVE: The patient is seen and examined at bedside today. The patient has no fever or chills. . No nausea or vomiting. Patient's urinary frequency is improving. No bleeding tendencies. No slurred speech or limb weakness. PHYSICAL EXAMINATION: GENERAL: Elderly male, alert, awake. VITAL SIGNS: His temperature today is 97.84. EYES: No icterus. Pupils equal and reactive. HENT: No oral thrush seen. Moist oral mucosa. NECK: Supple. No JVD or thyromegaly. LUNGS: Good air entry. No rales, no rhonchi. CARDIOVASCULAR: S1 and S2. Regular. No murmur heard. ABDOMEN: Full, soft, nontender. Bowel sounds present. CENTRAL NERVOUS SYSTEM: Awake, alert, oriented x 3. No focal deficits. SKIN: No rashes, no itchiness. LYMPHATIC: No peripheral lymphadenopathy. BACK: No deformity or pressure ulcer. HEMATOLOGIC: No bleeding or petechial lesions seen. MUSCULOSKELETAL: No joint swelling, erythema or tenderness. ASSESSMENT: A 69-year-old male with: * Gram-negative sepsis. * Urinary tract infection. * Obesity. * Benign prostatic hyperplasia * Leukocytosis. PLAN: * Follow-up . * Continue pain management. * Continue GI prophylaxis. * Monitor electrolytes. * Continue antiemetics. * Continue DVT prophylaxis. * Antibiotic will be adjusted once cultures are updated or finalized. TID: [id number] RECEIPT: [id number]
[2025-02-05 13:22] LABS: INR 1.02 (0.85-1.15)
--- NOTE | 2025-02-05 15:37 | PN ---
[facility] PROGRESS NOTE Date of Service: Feb 05, 2025 Time of Service: 15:34 SUBJECTIVE: [ Patient is 69-year-old male seen on 02/04/2025. Patient was having some anxiety and needed small dose of Valium p.o. in order to undergo MRI of the L- spine due to claustrophobia. Patient is being seen post MRI. He stated the test went uneventfully. He states that he was having burning on urination and getting up as many as 40 times to urinate prior to coming into the hospital. He does have CT evidence of pyelonephritis and he was also having sciatic type right sided low back pain. This was the reason the MRI was ordered. Patient denies any chest pain or shortness for breath no nausea or vomiting or diarrhea. Ambulating morning states he feels much better the weakness that he had prior to admission is also improving. He was able to ambulate some 400 ft with minimal assistance. 02/05 patient seen and examined. He states that he still has some increased urinary frequency but no burning on urination. He was concerned about receiving outpatient IV antibiotics and I explained this would be set up closer to his discharge. No chest pain or shortness for breath.] REVIEW OF SYSTEMS CONSTITUTIONAL: Generalized fatigue, malaise, poor oral intake NEUROLOGICAL: Reports having history of sciatica and he has been having lower back pain with paresthesias ENT: No hearing loss, otalgia, otorrhea, rhinitis, rhinorrhea, hoarseness, or sore throat. CARDIOVASCULAR: Denies any exertional angina, dyspnea on exertion, orthopnea, paroxysmal nocturnal dyspnea, palpitations, life-threatening arrhythmias, claudication. PULMONARY: Denies any shortness of breath, cough, phlegm/sputum, hemoptysis, pleuritic chest pain. SLEEP: Denies morning headaches, daytime somnolence or napping. Denies difficulty falling asleep, staying asleep, waking from sleep. Denies knowledge of snoring. GASTROINTESTINAL: Denies any type of dysphagia to either liquids or solids. Denies nausea, vomiting, pyrosis, early satiety, abdominal pain, diarrhea, constipation, or changes in stool consistency or caliber. Denies coffee-ground emesis, hematemesis, hematochezia, or melanotic stools. GENITOURINARY: Reports having urinary frequency, urgency ENDOCRINOLOGIC: Denies polyuria, polydipsia, polyphagia or heat/cold intolerances. HEMATOLOGIC: Denies thrombophilia/previous clots, or coagulopathy/bleeding disorders. ONCOLOGIC: Denies personal history of malignancy. DERMATOLOGIC: Denies rashes or pruritus. PSYCHIATRIC: Denies any suicidal or homicidal ideation. Denies hallucinations. PHYSICAL EXAM GENERAL APPEARANCE: The patient is awake, alert, and oriented, in no acute cardiopulmonary distress. NEUROLOGICAL: Cranial nerves II-XII grossly intact. Motor is 5/5 in bilateral upper and lower extremities proximal to distal. No sensory deficits. HEENT: Face is symmetric. Pupils are equal and reactive. Extraocular movements are intact. NECK: Supple. No JVD. No thyromegaly. No submental, submandibular, pre- /postauricular, occipital or supraclavicular lymphadenopathy. CHEST: Normal chest expansion. No Telemetry. LUNGS: Absence of any rales, rhonchi or any wheezing. CARDIOVASCULAR: Regular. S1 and S2 normal. No appreciable rubs, murmurs or ga llops. ABDOMEN: Soft, nontender, and nondistended. There is no rebound, voluntary guarding, or rigidity. No tenderness to percussion of the right flank : Deferred. No Reed. EXTREMITIES: Non-edematous and not cyanotic. No clubbing. Good capillary refill. SKIN: No skin breakdown. Vital Signs (last 8hr) Date Time Temp Pulse Resp B/P (MAP) Pulse Ox O2 Delivery O2 Flow Rate FiO2 02/05/25 15:22 98.4 58 15 132/69 96 Room Air 02/05/25 11:44 98.4 51 15 108/51 99 Room Air 02/05/25 07:43 98.1 64 16 152/75 100 Room Air LABS: Laboratory: Test 02/05/25 12:45 02/05/25 04:35 02/04/25 12:10 02/04/25 04:32 Range/Units Prothrombin Time 10.8 9.6-11.6 SEC Prothromb Time International Ratio 1.02 0.85-1.15 White Blood Count 7.8 4.8-10.8 K/uL Red Blood Count 2.75 L 4.50-6.20 MIL/uL Hemoglobin 9.1 L 14.0-18.0 g/dL Hematocrit 26.2 L 42-54 % Mean Corpuscular Volume 95.3 79-99 fL Mean Corpuscular Hemoglobin 33.1 H 27.0-33.0 pg Mean Corpuscular Hemoglobin Concent 34.7 32.0-36.0 g/dL Red Cell Distribution Width 13.7 11.0-15.5 % Platelet Count 96 L 130-400 K/uL Mean Platelet Volume 10.9 H 7.5-10.5 fL Immature Granulocyte % (Auto) 0.4 0-1 % Neutrophils (%) (Auto) 75.2 40.0-77.0 % Lymphocytes (%) (Auto) 15.8 L 21.0-51.0 % Monocytes (%) (Auto) 7.7 3.0-13.0 % Eosinophils (%) (Auto) 0.6 0.0-8.0 % Basophils (%) (Auto) 0.3 0.0-5.0 % Neutrophils # (Auto) 5.9 1.8-7.7 K/uL Lymphocytes # (Auto) 1.2 1.0-4.8 K/uL Monocytes # (Auto) 0.6 0.1-1.0 K/uL Eosinophils # (Auto) 0.05 0.00-0.70 K/uL Basophils # (Auto) 0.02 0.00-0.20 K/uL Absolute Immature Granulocyte (auto 0.03 0-1 K/uL Nucleated Red Blood Cells 0.0 0.0-0.19 % Sodium Level 144 136-145 mmol/L Potassium Level 3.8 3.5-5.1 mmol/L Chloride Level 110 101-111 mmol/L Carbon Dioxide Level 24 21-32 mmol/L Blood Urea Nitrogen 16 7-18 mg/dL Creatinine 1.3 0.5-1.3 mg/dL Glomerular Filtration Rate Calc 59 >90 mL/min Random Glucose 115 H 70-105 mg/dL Total Calcium 7.9 L 8.5-10.1 mg/dL Procalcitonin 4.60 H 0.05-0.5 ng/mL Stool Occult Blood NEGATIVE NEGATIVE Iron Level 16 L 65-175 mcg/dL Total Iron Binding Capacity 189 L 250-450 mcg/dL Percent Iron Saturation 8.4 L 30-44 % Vitamin B12 Level 270 193-986 pg/mL Folic Acid (LAB) 13.90 2-20 ng/mL Current Medications Medications (Trade) Dose Ordered Sig/Topher Route PRN Reason Start Time Stop Time Status Last Admin Dose Admin Acetaminophen (TYLenol 325MG TAB) 650 mg Q6H PRN PO MILD PAIN (1-3) 02/03/25 10:30 03/05/25 10:29 02/04/25 20:02 650 MG Atorvastatin Calcium (LIPItor 20MG) 20 mg HS PO 02/03/25 21:00 03/05/25 20:59 02/04/25 20:02 20 MG Diazepam (VALium 5 MG/ML 2 ML SYG) 2.5 mg ONCE IVP 02/03/25 17:30 02/03/25 19:05 DC Diazepam (VALium 5 MG/ML 2 ML SYG) 2.5 mg ONCE PRN IVP anxiety 02/03/25 19:30 02/03/25 21:30 DC Diazepam (VALium 5 MG/ML 2 ML SYG) 5 mg ONCE PRN IVP ANXIETY/AGITATION 02/04/25 12:00 02/04/25 12:00 DC 02/04/25 11:58 5 MG Docusate Sodium (COLace 100MG CAP) 100 mg BID PRN PO CONSTIPATION 02/05/25 13:30 03/07/25 13:29 Ferrous Gluconate (Ferrous Gluconate) 325 mg BID PO 02/05/25 21:00 03/07/25 20:59 Ferrous Sulfate (Ferrous Sulfate Liq) 300 mg BID PO 02/05/25 21:00 02/05/25 13:26 DC Folic Acid (FOLic ACID 1 MG TABLET) 1 mg DAILY PO 02/06/25 09:00 03/08/25 08:59 Hydralazine HCl (APRESOLine 20MG INJ) 5 mg Q6H PRN IV ADMINISTER FOR SBP > 160 02/03/25 11:30 02/03/25 19:35 DC Hydralazine HCl (APRESOLine 20MG INJ) 5 mg Q6H PRN IV ADMINISTER FOR SBP > 160 02/03/25 19:30 03/05/25 19:29 Ondansetron HCl (zoFRAN 4MG INJ) 4 mg Q6H PRN IVP NAUSEA/VOMITING 02/03/25 10:30 03/05/25 10:29 Pantoprazole Sodium (PROTonix 40MG INJ) 40 mg Q24H IVP 02/03/25 11:00 03/05/25 10:59 02/05/25 11:33 40 MG Piperacillin Sod/ Tazobactam Sod (Zosyn 3.375gm+NS 50ml) 3.375 gm Q8H IVPB 02/03/25 11:00 02/03/25 10:34 DC Piperacillin Sod/ Tazobactam Sod (Zosyn 3.375gm+NS 50ml) 3.375 gm Q8H IVPB 02/03/25 13:00 02/13/25 12:59 02/05/25 12:10 3.375 GM Polyethylene Glycol (MIRalax 3350 17 GM POWD.PACK) 17 gm DAILY PRN PO constipation 02/03/25 11:30 03/05/25 11:29 Sodium Chloride 1,000 ml @ 75 mls/hr [id number] IV 02/03/25 12:00 03/05/25 11:59 02/05/25 11:33 75 MLS/HR Tamsulosin HCl (FloMAX) 0.4 mg DAILY PO 02/04/25 09:00 03/06/25 08:59 02/05/25 07:46 0.4 MG Vitamin B Complex (Vitamin B-12) 1,000 mcg DAILY IM 02/06/25 09:00 03/08/25 08:59 Vitamin B Complex/ Vit C/Folic Acid (Nephrovite Tablet) 1 cap DAILY PO 02/04/25 09:00 03/06/25 08:59 02/05/25 07:46 1 CAP DIAGNOSTICS / RADIOLOGY: [ ] ASSESSMENT: Complicated urinary tract infection with sepsis, POA Leukocytosis, POA Anemia, POA Acute kidney injury, POA Recently diagnosed BPH, POA Exacerbation of sciatica, POA Hyperlipidemia, POA early pyelonephritis, POA Mixed anemia (both b12 and fe deficiency_ PLAN: Patient will be admitted to medical-surgical floor under telemetry monitoring continue broad spectrum IV abx appreciated ID input and care of pt We will keep patient on GI prophylaxis Protonix await MRI report Home medications will be reconciled and updated once available We will avoid any methocarbamol use We will assess for any urinary retention, we will start patient on p.r.n. MiraLax for management of constipation renal function improving. will start on b12 replacement IM injection and folate and iron po. Date of service:02/05/25 KARISHMA MA MD Feb 05, 2025 15:37
--- NOTE | 2025-02-05 19:31 | NUR ---
CM NOTE/[facility] REFERRAL CM spoke to patient regarding d/c planning. Patient aware of MD recommendations for longterm IV abx. Agreeable to following up at [facility] for o/p IV abx. CM obtained [facility] for [facility]. CM explained that office will open tomorrow and may discharge if approved tomorrow. Verbalized understanding. Patient asked CM about outpatient PT. CM explained that he will need to f/u o/p with PCP for orders. Verbalized understanding. No other questions or concerns verbalized. CM to send referral and follow up. Patient states he has reliable transportation to attend all scheduled visits at [facility]. Addendum: 02/05/25 at 1934 by DEYANIRA DONNELLY Amended: Links added.
[2025-02-05] MEDS ORDERED: FERROUS SULFATE 300 MG/5 ML LIQ UDCUP PO SCH (21:00)
[2025-02-05] MEDS: FERROUS GLUCONATE 324MG TABLET.DR PO SCH (21:19)
[2025-02-06 00:10] VITALS: BP 136/67; PULSE 50; RESP 17; TEMP 98.9
--- NOTE | 2025-02-06 01:53 | CONS ---
REASON FOR CONSULTATION: Evaluation and recommendation for anemia and thrombocytopenia. The patient has been admitted to the hospital with signs of urinary tract infection/urosepsis. HISTORY OF PRESENT ILLNESS: This is a 69-year-old gentleman without significant past history other than chronic lower back pain, high cholesterol, BPH, high blood pressure, started having dysuria since about midweek last week. He has been having increased frequency as well. He did notice having fevers and chills as well. He comes to the hospital Emergency Room for further evaluation. He was found to have elevated white count and temperature as well. Urinalysis was positive for infection. IMAGING STUDIES: CT scan of the abdomen and pelvis with contrast 02/03/2025 reported bilateral perinephric fat stranding, nonspecific in nature, but pyelonephritis is in the differential. Follow-up CT with IV contrast if clinically indicated. Mild bladder wall thickening consistent with cystitis. Grade 1 anterolisthesis of L4 over L5. Chest x-ray shows no acute cardiopulmonary pathology is evident. Urine culture was positive for more than 100,000 mixed skin kerry, possible contamination. So far, blood cultures have been negative though. Blood test on 02/04/2025 showed WBC 12.10, hemoglobin was 8.8, platelet count 111,000. The patient was given 2.5 L of fluid for sepsis. Repeat hemoglobin stays low, but stable though. Hematology consultation has been requested for anemia and thrombocytopenia. His blood test showing transferrin saturation was 8.4%. Folic acid was normal. Vitamin B12 level was normal, although at the lower end of normal at 270. The patient is currently on antibiotic Zosyn. Infectious Disease Service on board. Medical hematology consultation has been requested for anemia and thrombocytopenia. The patient states he had a colonoscopy done about 3 years ago and he is due for another one because of previous history of colon polyps. PAST MEDICAL HISTORY: High blood pressure, hypercholesterolemia, BPH. PAST SURGICAL HISTORY: Bilateral knee surgery. ALLERGIES: No known drug allergies. SOCIAL HISTORY: He does not smoke tobacco or drink alcohol. FAMILY HISTORY: Significant for his daughter who had possibly bladder cancer at a very young age. REVIEW OF SYSTEMS: GENERAL: Denies tiredness, weakness, or fatigue. All has resolved. NECK: Denies any neck pain or stiffness. RESPIRATORY: Denies any cough, sputum, hemoptysis. CARDIOVASCULAR: Denies any chest pain, palpitations, or orthopnea. GASTROINTESTINAL: Denies nausea, vomiting, or abdominal pain. GENITOURINARY: Dysuria has resolved. EXTREMITIES: He denies any weakness of the arms or legs. MUSCULOSKELETAL: He has chronic pain in the lower back, sometimes radiating to his left hip. PHYSICAL EXAMINATION: GENERAL: This is a very pleasant 69-year-old gentleman not in any distress. VITAL SIGNS: Temperature is 98.1, pulse 64, respirations 16, blood pressure 152/75. The patient's at bedside. HEENT: Sclerae anicteric. No paleness noted. NECK: Supple. No lymphadenopathy. LUNGS: Good air entry bilaterally, but he is on oxygen. CARDIOVASCULAR: S1 and S2 audible. No added sound. ABDOMEN: Soft, nontender, no visceromegaly. Bowel sounds are present. EXTREMITIES: No edema. No signs of DVTs. RESULTS REVIEW: CBC from 02/05/2025, WBC 7.8, hemoglobin 9.1, MCV 95.3, platelet count 96,000. BUN 16, creatinine 1.3. ASSESSMENT/PLAN: A 69-year-old gentleman with signs of urinary tract infection, possibly urosepsis, found to be anemic and thrombocytopenic. * As far as anemia is concerned, the patient has signs of some iron deficiency, which I have recommended and spoke with Dr. Chen to start ferrous sulfate 325 mg twice daily. The patient states he had a colonoscopy about 3 years ago and is due for another one, possibly from colon polyp. I would also recommend a stool to check for occult bleeding as well. We will recommend ferrous sulfate 325 mg twice daily. * Thrombocytopenia. Etiology is not very clear at this time. Infection is a possibility. Early signs of DIC is also a possibility. The patient has borderline slightly low B12 level. For that reason, we will recommend multivitamins at this time. Continue treatment for infection. We anticipate improvement of his platelet count. If platelet count do not improve, then one can consider doing a bone marrow suppression biopsy to rule out any myelodysplastic process. * Urinary tract infection, urosepsis. Continue medical management. Infectious Disease Service on board. Continue all supportive care. Plan of care reviewed with the patient, the patient's , and I have also discussed this case with the patient's primary referring hospitalist, Dr. Chen, yesterday. Of note, I had come to see the patient yesterday for a consultation, but the patient was off the floor for MRI, so I have discussed with Dr. Chen that I will see the patient today and I have come to see the patient today and completed the consultation as above. TID: [id number] RECEIPT: [id number]
--- NOTE | 2025-02-06 03:26 | PN ---
INFECTIOUS DISEASE FOLLOWUP NOTE DATE OF SERVICE: 02/05/2025. SUBJECTIVE: The patient is seen and examined at bedside today. The patient has had no fever, no chills. No bleeding tendency. No palpitations, no orthopnea. Denies sore throat or rhinorrhea. . PHYSICAL EXAMINATION: VITAL SIGNS: Temperature 98.7. EYES: No icterus. Pupils are equal and reactive. HENT: No oral thrush seen. Moist oral mucosa. NECK: Supple. No JVD or thyromegaly. LUNGS: Good air entry. No rales. No rhonchi. CARDIOVASCULAR: S1 and S2, regular. No murmurs heard. ABDOMEN: Full, soft, nontender. Bowed sound is present. CENTRAL NERVOUS SYSTEM: Awake, alert, and oriented x3. No focal deficits. SKIN: No rashes. LYMPHATIC: No peripheral lymphadenopathy. BACK: No deformity. No pressure ulcer. MUSCULOSKELETAL: No joint swelling, erythema or tenderness. ASSESSMENT: This is a 69-year-old male with multiple medical problems, which include: * Gram-negative sepsis. * Urinary tract infection. * . * Benign prostatic hyperplasia. * Leukocytosis. * Obesity. PLAN: * Continue Zosyn. * Continue pain management. * Continue Flomax. * Continue antiemetics. * Continue nutritional support. * Continue DVT prophylaxis. TID: [id number] RECEIPT: [id number]
[2025-02-06 03:52] VITALS: BP 145/87; PULSE 87; RESP 17; TEMP 98
[2025-02-06 05:23] LABS: IMMATURE GRANULOCYTE ABSOLUTE 0.03 K/uL (0-1); NUCLEATED RED BLOOD CELLS 0.0 % (0.0-0.19); PLATELET COUNT (AUTO) 102 K/uL (130-400); RED BLOOD CELL COUNT(AUTO) 2.90 MIL/uL (4.50-6.20); RED CELL DISTRIBUTION WIDTH 13.4 % (11.0-15.5); WHITE BLOOD COUNT (AUTO) 7.0 K/uL (4.8-10.8)
[2025-02-06 05:40] LABS: CREATININE 1.3 mg/dL (0.5-1.3); GLOMERULAR FILTR. RATE CALC 59.0 mL/min (>90); GLUCOSE,RANDOM 118.0 mg/dL (70-105); SODIUM SERUM 142.0 mmol/L (136-145); UREA NITROGEN, BLOOD 11.0 mg/dL (7-18)
[2025-02-06 07:30] VITALS: O2SAT 94
[2025-02-06 08:00] VITALS: BP 140/66; PULSE 65; RESP 18; TEMP 98.4
--- NOTE | 2025-02-06 08:16 | HMCIMG ---
EXAM: MR Lumbar Spine Without Intravenous Contrast. CLINICAL HISTORY: History of sciatica x 1 month. Progressive pain and weakness. TECHNIQUE: Magnetic resonance images of the lumbar spine in multiple planes. CONTRAST: None. COMPARISON: None. FINDINGS: For this examination, spinal levels were labeled assuming five [id number], lumbar-type vertebrae with the inferior labeled L5. No acute fracture. Moderate dextroscoliosis. Mild degenerative anterolisthesis of L4 over L5. Multilevel spondylosis is evident by marginal osteophytes and facet joint arthropathy. Multilevel disc desiccation and degenerative disc height reduction were noted, more pronounced at the L4-L5 level. Normal vertebral body heights. Normal marrow signal of the vertebrae. Conus medullaris terminates at the T12-L1 level. No abnormal epidural masses. Mild subcutaneous edema in the lower back. Individual spinal levels are described as follows: T10-T11, T11-T12 /T/ T12-L1: 3 mm disc osteophyte complex bulge causing mild indentation on the anterior thecal sac. L1-L2: 3 mm disc osteophyte complex bulge causing mild indentation on the anterior thecal sac. No neural foraminal or lateral recess stenosis. L2-L3: 4 mm disc osteophyte complex bulge and facet joint arthropathy causing mild indentation on the anterior thecal sac and mild bilateral foraminal narrowing. No lateral recess stenosis. L3-L4: 3 mm disc osteophyte complex bulge causing mild indentation on the anterior thecal sac and mild bilateral foraminal narrowing. No lateral recess stenosis. L4-L5: 6 mm anterolisthesis of L4 over L5 with uncovering of the posterior disc, ligamentum flavum thickening, and facet joint arthropathy, causing mild canal narrowing and mild to moderate bilateral foraminal narrowing with indentation on the exiting bilateral L4 nerve roots. No lateral recess stenosis. L5-S1: 3 mm disc osteophyte complex bulge and facet joint arthropathy causing mild indentation on the anterior thecal sac and mild bilateral foraminal narrowing. No lateral recess stenosis. IMPRESSION: Moderate dextroscoliosis. Mild degenerative anterolisthesis of L4 over L5. Mild multilevel spondylosis and degenerative disc changes. Mild indentation on the anterior thecal sac at the T10-T11, T11-T12, T12-L1, and L1-L2 levels. Mild indentation on the anterior thecal sac and mild bilateral foraminal narrowing at the L2-L3, L3-L4, and L5-S1 levels. Mild canal narrowing and mild to moderate bilateral foraminal narrowing with indentation on the exiting bilateral L4 nerve roots at the L4-L5 level. /[place]
[2025-02-06] MEDS: CYANOCOBALAMIN (VITAMIN B-12) 1000 MCG/ML 1ML VIAL IM SCH (09:19)
[2025-02-06] MEDS: PoTASSium chloRIDE 20MEQ ER 20 MEQ ERTAB PO ONE (10:39)
--- NOTE | 2025-02-06 10:53 | PN ---
INFECTIOUS DISEASE PROGRESS NOTE Date of Service: Feb 06, 2025 SUBJECTIVE: [ ] PHYSICAL EXAM EYES: Anicteric. Pupils equal and reactive. HENT: No oral thrush seen, moist Oral mucosa NECK: Supple, no JVD or thyromegaly. LUNGS: Good air entry. No rales, no rhonchi. CARDIOVASCULAR: S1, S2 regular. No murmur heard. ABDOMEN: Soft, non tender, bowel sounds present, no organomegaly CENTRAL NERVOUS SYSTEM: Awake, alert, oriented x 3. No focal deficits. SKIN: No rashes, no swelling. LYMPHATICS: No peripheral lymphadenopathy MUSCULOSKELETAL: No joint swelling, erythema or tenderness. EXTREMITIES: No cyanosis or clubbing BACK: No deformity, no pressure ulcer. GENITOURINARY: No dysuria or hematuria Vital Sign (Last 12 Hours) 02/06/25 02/06/25 02/06/25 00:10 03:52 08:00 Temp 99.0 98.1 98.4 Pulse 50 87 65 Resp 17 17 18 B/P (MAP) 136/67 145/87 140/66 Pulse Ox 97 96 94 O2 Delivery Room Air Room Air Room Air Intake & Output (last 24hrs) 02/05/25 02/05/25 02/06/25 15:00 23:00 07:00 Intake Total 400 ml 1460.0 ml 490.0 ml Output Total 1200 ml 100 ml 1675 ml Balance -800 ml 1360.0 ml -1185.0 ml LABS: Laboratory: Test 02/06/25 04:59 02/05/25 12:45 02/05/25 04:35 02/04/25 12:10 Range/Units White Blood Count 7.0 4.8-10.8 K/uL Red Blood Count 2.90 L 4.50-6.20 MIL/uL Hemoglobin 9.4 L 14.0-18.0 g/dL Hematocrit 28.5 L 42-54 % Mean Corpuscular Volume 98.3 79-99 fL Mean Corpuscular Hemoglobin 32.4 27.0-33.0 pg Mean Corpuscular Hemoglobin Concent 33.0 32.0-36.0 g/dL Red Cell Distribution Width 13.4 11.0-15.5 % Platelet Count 102 L 130-400 K/uL Mean Platelet Volume 10.9 H 7.5-10.5 fL Immature Granulocyte % (Auto) 0.4 0-1 % Neutrophils (%) (Auto) 70.4 40.0-77.0 % Lymphocytes (%) (Auto) 18.4 L 21.0-51.0 % Monocytes (%) (Auto) 9.8 3.0-13.0 % Eosinophils (%) (Auto) 0.6 0.0-8.0 % Basophils (%) (Auto) 0.4 0.0-5.0 % Neutrophils # (Auto) 4.9 1.8-7.7 K/uL Lymphocytes # (Auto) 1.3 1.0-4.8 K/uL Monocytes # (Auto) 0.7 0.1-1.0 K/uL Eosinophils # (Auto) 0.04 0.00-0.70 K/uL Basophils # (Auto) 0.03 0.00-0.20 K/uL Absolute Immature Granulocyte (auto 0.03 0-1 K/uL Nucleated Red Blood Cells 0.0 0.0-0.19 % Sodium Level 142 136-145 mmol/L Potassium Level 3.5 3.5-5.1 mmol/L Chloride Level 109 101-111 mmol/L Carbon Dioxide Level 27 21-32 mmol/L Blood Urea Nitrogen 11 7-18 mg/dL Creatinine 1.3 0.5-1.3 mg/dL Glomerular Filtration Rate Calc 59 >90 mL/min Random Glucose 118 H 70-105 mg/dL Total Calcium 8.1 L 8.5-10.1 mg/dL Prothrombin Time 10.8 9.6-11.6 SEC Prothromb Time International Ratio 1.02 0.85-1.15 Procalcitonin 4.60 H 0.05-0.5 ng/mL Stool Occult Blood NEGATIVE NEGATIVE DIAGNOSTICS / RADIOLOGY: ATIENT: NADEEN BRAMBILA MR#: [id number] : 1955 SEX: M AGE: 69 LOCATION: [facility] ORDER 1030 STATUS: ADM IN REPORT#: [id number] SERVICE 1025 REASON: complicated UTI ORDERING PHYSICIAN: KAL MILLS MD PROCEDURE: ABD PEL WO - CT ABDOMEN/PELVIS W/O CONTRAST EXAM: CT Abdomen and Pelvis Without IV Contrast CLINICAL HISTORY: Complicated urinary tract infection. TECHNIQUE: Axial computed tomography images of the abdomen and pelvis were obtained without intravenous contrast. CONTRAST: No IV contrast administered. COMPARISON: None provided. FINDINGS: LUNG BASES: The lung bases appear clear. No pleural effusions are seen. LIVER: Unremarkable in size and attenuation. No focal hepatic lesions identified. GALLBLADDER AND BILE DUCTS: Gallbladder appears within normal limits. No radioopaque gallstones or wall thickening. No intrahepatic or extrahepatic biliary dilatation. PANCREAS: Normal in size and contour. No peripancreatic stranding or focal lesion. SPLEEN: Unremarkable in size and density. ADRENAL GLANDS: Normal bilaterally. KIDNEYS, URETERS, AND BLADDER: Perinephric fat stranding is noted on both sides, suggestive of inflammatory or infectious changes. No hydronephrosis or urinary calculi are identified. The urinary bladder shows mild circumferential wall thickening, measuring approximately 0.6 cm, consistent with mild cystitis. No perivesical collection or intraluminal calculus seen. STOMACH AND BOWEL: Unremarkable appearance of the stomach and bowel. No evidence of obstruction, enteritis, or colitis. APPENDIX: Visualized appendix appears normal with no evidence of appendicitis. PERITONEUM: No free fluid or free intraperitoneal air detected. LYMPH NODES: No significant lymphadenopathy is evident. REPRODUCTIVE: Unremarkable as visualized. VASCULATURE: No evidence of abdominal aortic aneurysm or vascular calcification. BONES: Grade I anterior listhesis of L4 over L5 is noted. No acute fracture or aggressive osseous lesion identified. IMPRESSION: 1. Bilateral perinephric fat stranding, nonspecific in nature but pyelonephritis is in the differential. Follow up with CT with IV contrast if clinicall indicated. 2. Mild bladder wall thickening (0.6 cm), consistent with cystitis. 3. Grade I anterior listhesis of L4 over L5. /[place] DICTATED BY: ARTI COUCH MD DATE: 02/03/25 2364 ASSESSMENT: Urinary tract infection. Anemia. Benign prostatic hyperplasia. Multilevel spondylosis. PLAN: Continue Zosyn. Continue pain management. Continue GI prophylaxis. Case management evaluation for referral to [facility] for [facility] IV antibiotics with Zosyn IV every 8 hours for 10 days. Prescription was written. Midline has been placed. This case was reviewed and discussed with my supervising physician Dr. Chris and the above assessment and plan was formulated and agreed upon. ATTESTATION BY PHYSICIAN I have seen and examined the patient. I reviewed the documentation, medical decision making, and treatment plan as noted by the mid-level provider above. I agree with the findings and plan of care. ISHA BRUNNER MD, MIRTA L [facility] Feb 06, 2025 10:53
[2025-02-06] MEDS ORDERED: FERR324T17 PO (11:13)
[2025-02-06] MEDS ORDERED: FOLI1 PO (11:13)
[2025-02-06 12:00] VITALS: BP 139/64; PULSE 49; RESP 18; TEMP 98.4
--- NOTE | 2025-02-06 12:43 | PN ---
[facility] PROGRESS NOTE Date of Service: Feb 06, 2025 Time of Service: 12:41 SUBJECTIVE: [ Patient is 69-year-old male seen on 02/04/2025. Patient was having some anxiety and needed small dose of Valium p.o. in order to undergo MRI of the L- spine due to claustrophobia. Patient is being seen post MRI. He stated the test went uneventfully. He states that he was having burning on urination and getting up as many as 40 times to urinate prior to coming into the hospital. He does have CT evidence of pyelonephritis and he was also having sciatic type right sided low back pain. This was the reason the MRI was ordered. Patient denies any chest pain or shortness for breath no nausea or vomiting or diarrhea. Ambulating morning states he feels much better the weakness that he had prior to admission is also improving. He was able to ambulate some 400 ft with minimal assistance. 02/05 patient seen and examined. He states that he still has some increased urinary frequency but no burning on urination. He was concerned about receiving outpatient IV antibiotics and I explained this would be set up closer to his discharge. No chest pain or shortness for breath. 02/06 patient is seen and examined at bedside, discussed with the RN, no acute events overnight. During my visit he is sitting comfortably in the chair watching TV. Currently pending insurance approval for the patient to be accepted for IV antibiotics at [facility]. REVIEW OF SYSTEMS CONSTITUTIONAL: Generalized fatigue, malaise, poor oral intake NEUROLOGICAL: Reports having history of sciatica and he has been having lower back pain with paresthesias ENT: No hearing loss, otalgia, otorrhea, rhinitis, rhinorrhea, hoarseness, or sore throat. CARDIOVASCULAR: Denies any exertional angina, dyspnea on exertion, orthopnea, paroxysmal nocturnal dyspnea, palpitations, life-threatening arrhythmias, claudication. PULMONARY: Denies any shortness of breath, cough, phlegm/sputum, hemoptysis, pleuritic chest pain. SLEEP: Denies morning headaches, daytime somnolence or napping. Denies difficulty falling asleep, staying asleep, waking from sleep. Denies knowledge of snoring. GASTROINTESTINAL: Denies any type of dysphagia to either liquids or solids. Denies nausea, vomiting, pyrosis, early satiety, abdominal pain, diarrhea, constipation, or changes in stool consistency or caliber. Denies coffee-ground emesis, hematemesis, hematochezia, or melanotic stools. GENITOURINARY: Reports having urinary frequency, urgency ENDOCRINOLOGIC: Denies polyuria, polydipsia, polyphagia or heat/cold intolerances. HEMATOLOGIC: Denies thrombophilia/previous clots, or coagulopathy/bleeding disorders. ONCOLOGIC: Denies personal history of malignancy. DERMATOLOGIC: Denies rashes or pruritus. PSYCHIATRIC: Denies any suicidal or homicidal ideation. Denies hallucinations. PHYSICAL EXAM GENERAL APPEARANCE: The patient is awake, alert, and oriented, in no acute cardiopulmonary distress. NEUROLOGICAL: Cranial nerves II-XII grossly intact. Motor is 5/5 in bilateral upper and lower extremities proximal to distal. No sensory deficits. HEENT: Face is symmetric. Pupils are equal and reactive. Extraocular movements are intact. NECK: Supple. No JVD. No thyromegaly. No submental, submandibular, pre- /postauricular, occipital or supraclavicular lymphadenopathy. CHEST: Normal chest expansion. No Telemetry. LUNGS: Absence of any rales, rhonchi or any wheezing. CARDIOVASCULAR: Regular. S1 and S2 normal. No appreciable rubs, murmurs or gallops. ABDOMEN: Soft, nontender, and nondistended. There is no rebound, voluntary guarding, or rigidity. No tenderness to percussion of the right flank : Deferred. No Reed. EXTREMITIES: Non-edematous and not cyanotic. No clubbing. Good capillary refill. SKIN: No skin breakdown. Vital Signs (last 8hr) Date Time Temp Pulse Resp B/P (MAP) Pulse Ox O2 Delivery O2 Flow Rate FiO2 02/06/25 12:00 98.4 49 18 139/64 97 Room Air 02/06/25 08:00 98.4 65 18 140/66 94 Room Air 02/06/25 07:30 94 Room Air* 0 21 LABS: Laboratory: Test 02/06/25 04:59 02/05/25 12:45 02/05/25 04:35 Range/Units White Blood Count 7.0 4.8-10.8 K/uL Red Blood Count 2.90 L 4.50-6.20 MIL/uL Hemoglobin 9.4 L 14.0-18.0 g/dL Hematocrit 28.5 L 42-54 % Mean Corpuscular Volume 98.3 79-99 fL Mean Corpuscular Hemoglobin 32.4 27.0-33.0 pg Mean Corpuscular Hemoglobin Concent 33.0 32.0-36.0 g/dL Red Cell Distribution Width 13.4 11.0-15.5 % Platelet Count 102 L 130-400 K/uL Mean Platelet Volume 10.9 H 7.5-10.5 fL Immature Granulocyte % (Auto) 0.4 0-1 % Neutrophils (%) (Auto) 70.4 40.0-77.0 % Lymphocytes (%) (Auto) 18.4 L 21.0-51.0 % Monocytes (%) (Auto) 9.8 3.0-13.0 % Eosinophils (%) (Auto) 0.6 0.0-8.0 % Basophils (%) (Auto) 0.4 0.0-5.0 % Neutrophils # (Auto) 4.9 1.8-7.7 K/uL Lymphocytes # (Auto) 1.3 1.0-4.8 K/uL Monocytes # (Auto) 0.7 0.1-1.0 K/uL Eosinophils # (Auto) 0.04 0.00-0.70 K/uL Basophils # (Auto) 0.03 0.00-0.20 K/uL Absolute Immature Granulocyte (auto 0.03 0-1 K/uL Nucleated Red Blood Cells 0.0 0.0-0.19 % Sodium Level 142 136-145 mmol/L Potassium Level 3.5 3.5-5.1 mmol/L Chloride Level 109 101-111 mmol/L Carbon Dioxide Level 27 21-32 mmol/L Blood Urea Nitrogen 11 7-18 mg/dL Creatinine 1.3 0.5-1.3 mg/dL Glomerular Filtration Rate Calc 59 >90 mL/min Random Glucose 118 H 70-105 mg/dL Total Calcium 8.1 L 8.5-10.1 mg/dL Prothrombin Time 10.8 9.6-11.6 SEC Prothromb Time International Ratio 1.02 0.85-1.15 Procalcitonin 4.60 H 0.05-0.5 ng/mL Current Medications Medications (Trade) Dose Ordered Sig/Topher Route PRN Reason Start Time Stop Time Status Last Admin Dose Admin Acetaminophen (TYLenol 325MG TAB) 650 mg Q6H PRN PO MILD PAIN (1-3) 02/03/25 10:30 03/05/25 10:29 02/04/25 20:02 650 MG Atorvastatin Calcium (LIPItor 20MG) 20 mg HS PO 02/03/25 21:00 03/05/25 20:59 02/05/25 21:15 20 MG Diazepam (VALium 5 MG/ML 2 ML SYG) 2.5 mg ONCE IVP 02/03/25 17:30 02/03/25 19:05 DC Diazepam (VALium 5 MG/ML 2 ML SYG) 2.5 mg ONCE PRN IVP anxiety 02/03/25 19:30 02/03/25 21:30 DC Diazepam (VALium 5 MG/ML 2 ML SYG) 5 mg ONCE PRN IVP ANXIETY/AGITATION 02/04/25 12:00 02/04/25 12:00 DC 02/04/25 11:58 5 MG Docusate Sodium (COLace 100MG CAP) 100 mg BID PRN PO CONSTIPATION 02/05/25 13:30 03/07/25 13:29 Ferrous Gluconate (Ferrous Gluconate) 325 mg BID PO 02/05/25 21:00 03/07/25 20:59 02/06/25 09:14 325 MG Ferrous Sulfate (Ferrous Sulfate Liq) 300 mg BID PO 02/05/25 21:00 02/05/25 13:26 DC Folic Acid (FOLic ACID 1 MG TABLET) 1 mg DAILY PO 02/06/25 09:00 03/08/25 08:59 02/06/25 09:14 1 MG Hydralazine HCl (APRESOLine 20MG INJ) 5 mg Q6H PRN IV ADMINISTER FOR SBP > 160 02/03/25 11:30 02/03/25 19:35 DC Hydralazine HCl (APRESOLine 20MG INJ) 5 mg Q6H PRN IV ADMINISTER FOR SBP > 160 02/03/25 19:30 03/05/25 19:29 Ondansetron HCl (zoFRAN 4MG INJ) 4 mg Q6H PRN IVP NAUSEA/VOMITING 02/03/25 10:30 03/05/25 10:29 Pantoprazole Sodium (PROTonix 40MG INJ) 40 mg Q24H IVP 02/03/25 11:00 03/05/25 10:59 02/06/25 10:38 40 MG Piperacillin Sod/ Tazobactam Sod (Zosyn 3.375gm+NS 50ml) 3.375 gm Q8H IVPB 02/03/25 11:00 02/03/25 10:34 DC Piperacillin Sod/ Tazobactam Sod (Zosyn 3.375gm+NS 50ml) 3.375 gm Q8H IVPB 02/03/25 13:00 02/13/25 12:59 02/06/25 12:32 3.375 GM Polyethylene Glycol (MIRalax 3350 17 GM POWD.PACK) 17 gm DAILY PRN PO constipation 02/03/25 11:30 03/05/25 11:29 Sodium Chloride 1,000 ml @ 75 mls/hr [id number] IV 02/03/25 12:00 03/05/25 11:59 02/06/25 00:44 75 MLS/HR Tamsulosin HCl (FloMAX) 0.4 mg DAILY PO 02/04/25 09:00 03/06/25 08:59 02/06/25 09:15 0.4 MG Vitamin B Complex (Vitamin B-12) 1,000 mcg DAILY IM 02/06/25 09:00 03/08/25 08:59 02/06/25 09:19 1,000 MCG Vitamin B Complex/ Vit C/Folic Acid (Nephrovite Tablet) 1 cap DAILY PO 02/04/25 09:00 03/06/25 08:59 02/06/25 09:15 1 CAP DIAGNOSTICS / RADIOLOGY: [ ] ASSESSMENT: Complicated urinary tract infection with sepsis, POA Leukocytosis, POA Anemia, POA Acute kidney injury, POA Recently diagnosed BPH, POA Exacerbation of sciatica, POA Hyperlipidemia, POA early pyelonephritis, POA Mixed anemia (both b12 and fe deficiency_ PLAN: Patient will be admitted to medical-surgical floor under telemetry monitoring continue broad spectrum IV abx appreciated ID input and care of pt We will keep patient on GI prophylaxis Protonix await MRI report Home medications will be reconciled and updated once available We will avoid any methocarbamol use We will assess for any urinary retention, we will start patient on p.r.n. MiraLax for management of constipation renal function improving. will start on b12 replacement IM injection and folate and iron po. Date of service:02/05/25 BLANCA BRUNO MD Feb 06, 2025 12:43
[2025-02-06 16:00] VITALS: BP 132/60; PULSE 52; RESP 18; TEMP 98
--- NOTE | 2025-02-06 17:59 | NUR ---
DISCHARGE PATIENT GIVEN PRESCRIPTION FOR ZOSYN PATIENT GIVEN PAPER OF APPOINTMENT FOR [facility] TOMORROW AT 0900. PATIENT INFORMED TO FOLLOW UP WITH PRIMARY IN 3-5 DAYS. TO FOLLOW UP WITH DR. PEREIRA IN 1 WEEK. ALL QUESTIONS ANSWERED PRIOR TO DISCHARGE.
--- NOTE | 2025-02-07 01:47 | PN ---
LOCATION: [facility]. SUBJECTIVE: The patient was admitted with urinary tract infection, pyelonephritis, on IV antibiotics. We are asked to address the anemia and thrombocytopenia as from iron deficiency anemia, sat is only 8%. PHYSICAL EXAMINATION: GENERAL: An elderly man. CHEST: Clear. IMPRESSION: * Sepsis, stable, on antibiotics. * Iron deficiency anemia, this can be worked up as outpatient and can get IV iron in my office. * Thrombocytopenia, consumptive type, this can be worked up as well, it is stable at this time. * He had an MRI of the lumbar spine which is unread, he would like to know the results of that. PLAN: We will get the results before he goes home. I think he can go home and come back in our office in 1 week for IV iron, and further workup of the platelet situation that should clear with treatment of the infection. TID: [id number] RECEIPT: [id number]
--- NOTE | 2025-02-07 08:57 | DS ---
Discharge Summary Hospital Course Summary: Date of service 02/06/2025 Patient admitted to hospital dose 2024 with the following history of the present illness: This is a 69-year-old male with underlying history of recently diagnosed BPH, hypertension, hyperlipidemia, history of sciatica who presented to the ER for further evaluation of fever with a, poor oral intake, and lower extremity weakness. Patient states that he has been having progressive pain involving the back and bilateral lower extremities involving the thigh, and he recently saw his primary care provider about five days ago. Was diagnosed with flare-up of sciatica and has been taking methocarbamol since Thursday to assist with symptoms. Patient states that close to midnight tonight, he felt more dizziness, progressive weakness of the bilateral lower extremities where he could not get up from the bed. Denies any falls. Denies any chest pain, cough or congestion. He has been having dysuria, and increased urinary frequency. Patient reports having history of constipation and he takes p.r.n. MiraLax for management of constipation./bowel movement was yesterday. Patient denies any previous history of stroke, denies any cardiac or pulmonary comorbidities. States that he is feeling much better since coming to the ER and the weakness has mostly resolved lower extremity. On presentation to the hospital, patient was noted to be febrile with T-max of 100.4, heart rate of 75, blood pressure of 112/50. [place] [address], hemoglobin of 10.6, platelet count of 568374. BMP remarkable for sodium of 140, potassium 3.8, BUN of 22, creatinine 1.4, blood glucose of 158, procalcitonin of 1.74. Urinalysis showed cloudy urine with leukocyte esterase positive, significant pyuria, rare bacteria. Patient will be admitted for further management of sepsis secondary to complica shawanda urinary tract infection. Patient will receive sepsis bolus of fluids, IV antibiotics. Patient was also seen by Dr. Rojo with [facility], patient with no significant focal deficits so no need for CT head without contrast per Dr. Rojo. Dr. Rojo was recommending a MRI of the lumbar spine for further evaluation if weakness does not improve during admission given his previous history of sciatica for one month. HOSPITAL COURSE Patient is 69-year-old male seen on 02/04/2025. Patient was having some anxiety and needed small dose of Valium p.o. in order to undergo MRI of the L-spine due to claustrophobia. Patient is being seen post MRI. He stated the test went uneventfully. He states that he was having burning on urination and getting up as many as 40 times to urinate prior to coming into the hospital. He does have CT evidence of pyelonephritis and he was also having sciatic type right sided low back pain. This was the reason the MRI was ordered. Patient denies any chest pain or shortness for breath no nausea or vomiting or diarrhea. Ambulating morning states he feels much better the weakness that he had prior to admission is also improving. He was able to ambulate some 400 ft with minimal assistance. 02/05 patient seen and examined. He states that he still has some increased urinary frequency but no burning on urination. He was concerned about receiving outpatient IV antibiotics and I explained this would be set up closer to his discharge. No chest pain or shortness for breath. 02/06 patient is seen and examined at bedside, discussed with the RN, no acute events overnight. During my visit he is sitting comfortably in the chair watching TV. Currently pending insurance approval for the patient to be accepted for IV antibiotics at [facility]. Onboarding Specialist(s): INFECTIOUS DISEASE Assessment/Plan: FINAL DIAGNOSIS Complicated urinary tract infection with sepsis, POA Leukocytosis, POA Anemia, POA Acute kidney injury, POA Recently diagnosed BPH, POA Exacerbation of sciatica, POA Hyperlipidemia, POA early pyelonephritis, POA Mixed anemia (both b12 and fe deficiency_ Discharge Instructions: PATIENT TO BE DISCHARGED HOME, TO FOLLOW UP WITH PCP AN OUTPATIENT. RETURN IF CONDITION CHANGES. PATIENT AGREED AND UNDERSTOOD THE INFORMATION PROVIDED. Home Medications: Active Scripts Folic Acid (Folvite) 1 Mg Tab, 1 MG PO DAILY for 30 Days, #30 TAB 1 Refill Prov:BLANCA BRUNO MD 02/06/25 Ferrous Gluconate (Fergon) 324 Mg (37.5 Mg Iron) Ectab, 325 MG PO BID for 30 Days, #60 TAB.EC 1 Refill Prov:BLANCA BRUNO MD 02/06/25 Reported Medications Tamsulosin HCl (Flomax) 0.4 Mg Cap.er.24h, 1 CAP PO DAILY for 30 Days, #30 CAP 0 Refills 02/03/25 Ramipril (Ramipril) 2.5 Mg Capsule, 2.5 MG PO HS, CAP 04/17/22 Atorvastatin Calcium (Atorvastatin Calcium) 20 Mg Tablet, 20 MG PO HS, TAB 04/17/22 Discontinued Reported Medications Docusate Sodium (Colace) 100 Mg Capsule, 100 MG PO HS, CAP 04/17/22 Lactulose (Lactulose) 10 Gm/15 Ml Solution, 10 GM PO BID, ML 04/17/22 Discontinued Scripts Acetaminophen with Codeine (Acetaminophen-Cod #3 Tablet) 300 Mg-30 Mg Tablet, 1- 2 TAB PO Q4H PRN for PAIN, #10 TAB 0 Refills Prov:ELYSSA BUTLER MD 02/19/23 Time spent arranging discharge: 31-60 minutes BLANCA BRUNO MD Feb 07, 2025 08:57
== END 2025-02-06 18:03 | disposition home or self-care (01) ==
LOC: EDH 07:35 → EDHIP 10:25 → UNDOADMOB 10:25 → INTOOBSV 10:25 → EDHIP 13:13 → 3AH 13:13 → EDHIP 02-06 08:30
PROVIDERS: ADMIT Internal Medicine; ATTEND Internal Medicine
DX: N39.0 Urinary tract infection, site not specified (principal); A41.50 Gram-negative sepsis, unspecified; M54.30 Sciatica, unspecified side; N17.9 Acute kidney failure, unspecified; D72.829 Elevated white blood cell count, unspecified; E78.00 Pure hypercholesterolemia, unspecified; E11.9 Type 2 diabetes mellitus without complications; D69.6 Thrombocytopenia, unspecified; D50.9 Iron deficiency anemia, unspecified; I10 Essential (primary) hypertension; G51.0 Bell's palsy; N12 Tubulo-interstitial nephritis, not specified as acute or chronic; N40.0 Benign prostatic hyperplasia without lower urinary tract symptoms; E66.9 Obesity, unspecified; R53.1 Weakness; M25.552 Pain in left hip; Z79.899 Other long term (current) drug therapy; Z98.890 Other specified postprocedural states; Z68.29 Body mass index [BMI] 29.0-29.9, adult
CPT/HCPCS: 96365; 96366 ×8; 96375 ×2; 96367; 99285; 82550; 80076; 83615; 84484; 80048 ×4; 85025 ×4; 85610 ×2; 85730; 85651; 87040 ×2; 87086; 83605; 86140; 81001; 36415 ×4; 71045; 74176; 93005; 84145 ×2; 96376 ×3; 83540; 83550; 85014 ×2; 85018 ×2; 86850; 86900; 86901; 82607; 82746; 82270; 72148; 97161; 97116; 97530; 36556; 96372; J7030; J0696; J2543 ×12; J2470 ×4; J3360; C1894; G0378 ×10; J3420; 96374